=== PATIENT | female | born 1955 | race Caucasian/White ===

== ENCOUNTER 2024-06-27 08:16 | Inpatient (IN) | payer MEDICARE, SELFPAY ==
[2024-06-27] VITALS (38 sets, daily range): BP systolic 70–122; BP diastolic 47–73; PULSE 65–97; RESP 8–97; TEMP 36.4–36.8; O2SAT 87–100; BMI 24.7; BMI 25.0
--- NOTE | 2024-06-27 08:47 | EDNOTE_ITS ---
Altered Mental Status RME/HPI General Chief Complaint: Altered Mental Status Stated Complaint: altered level Time Seen by Provider: 06/27/24 08:46 Arrival date/time: 06/27/24 08:16 Limitations: no limitations RME / HPI RME / HPI narrative: * EMS Report: Patient was brought in [facility] (brought in by ambulance) for nausea and vomiting. * Patient's Report: The patient is unable to provide a clear time frame for the onset of symptoms and has no additional complaints. The patient denies having diarrhea. Additional Information: * No other significant symptoms or complaints noted at the time of arrival. Related Data Home Medications ?Medication ?Instructions ?Recorded ?Confirmed apixaban 5 mg tablet (Eliquis) 5 mg PO BID 09/19/23 01/08/24 lisinopril 2.5 mg tablet 2.5 mg PO QDAY 09/19/23 01/07/24 metoprolol tartrate 25 mg tablet 25 mg PO QDAY 09/19/23 01/07/24 acetaminophen 325 mg tablet 650 mg PO Q4HR PRN Pain (Scale 09/20/23 01/07/24 (Tylenol) Score 1-3) insulin glargine 100 unit/mL (3 40 unit subcut HS 09/20/23 01/07/24 mL) subcutaneous pen (Lantus Solostar U-100 Insulin) meclizine 25 mg tablet 25 mg PO BID PRN Nausea And 09/20/23 01/07/24 Vomiting ondansetron HCl 4 mg tablet 4 mg PO TID PRN Nausea 09/20/23 01/08/24 sitagliptin phosphate 100 mg 100 mg PO QDAY 09/20/23 01/07/24 tablet (Januvia) docusate sodium 250 mg capsule 250 mg PO BID 10/07/23 01/07/24 (DSS) folic acid 1 mg tablet 1 mg PO QDAY 10/07/23 01/07/24 insulin lispro 100 unit/mL See Rx Instructions .Route .COMPLEX 10/07/23 01/01/24 subcutaneous solution (Humalog U-100 Insulin) vortioxetine 10 mg tablet 10 mg PO QDAY 10/07/23 01/08/24 (Trintellix) alprazolam 0.25 mg tablet (Xanax) 0.25 mg PO BID PRN yelling out, 11/08/23 01/08/24 anxiety famotidine 20 mg tablet (Pepcid) 20 mg PO BID 11/08/23 01/08/24 pantoprazole 40 mg tablet,delayed 40 mg PO QDAY 11/08/23 01/08/24 release (Protonix) tramadol 50 mg tablet 50 mg PO Q6H PRN Pain, Moderate 11/08/23 01/08/24 methimazole 5 mg tablet 5 mg PO TID 01/01/24 01/07/24 pregabalin 50 mg capsule 50 mg PO BID 01/01/24 01/08/24 magnesium hydroxide 400 mg/5 mL 30 ml PO Q72H PRN Constipation 01/07/24 01/08/24 oral suspension (Milk of Magnesia) megestrol 400 mg/10 mL (40 mg/mL) 400 mg PO QDAY 01/07/24 01/07/24 oral suspension nitrofurantoin 100 mg PO BID 01/07/24 01/07/24 monohydrate/macrocrystals 100 mg capsule (Macrobid) Previous Rx's ?Medication ?Instructions ?Recorded fosfomycin tromethamine 3 gram 1 packet PO Q3D uti prophylaxis 6 01/03/24 oral packet months #1 ea ondansetron HCl 4 mg tablet 4 mg PO Q6H PRN nausea and 06/27/24 vomiting #7 tabs potassium chloride 20 mEq 20 meq PO QDAY #14 tabs 06/27/24 tablet,extended release(part/cryst) Allergies Allergy/AdvReac Type Severity Reaction Status Date / Time adhesive tape Allergy Rash Verified 11/15/23 11:10 Review of Systems Review of Systems Systems Reviewed: All systems reviewed, normal except as documented ED Exam General Limitations: Present no limitations General appearance: Present alert and in no apparent distress Head Head exam: Present atraumatic Eye Eye exam: Present normal appearance and PERRL ENT ENT exam: Present normal exam Chest Chest inspection: Present normal inspection Respiratory Respiratory exam: Present normal lung sounds bilaterally Cardiovascular Cardiovascular exam: Present regular rate and normal rhythm Abdominal Exam Abdominal exam: Present soft and normal bowel sounds Neurological Exam Neurological exam: Present alert and CN II-XII intact Psychiatric Psychiatric exam: Present depressed Course Quality Measures none Orders Category Date Time Status EKG (ED ONLY) *Do not use* NOW Care 06/27/24 09:20 Completed EKG (ED Only) Stat Exams 06/27/24 09:20 Draft XR chest 1V portable Stat Exams 06/27/24 09:20 Taken B-Type Natriuretic Peptide Stat Lab 06/27/24 09:38 Completed CBC Stat Lab 06/27/24 09:38 Completed Comprehensive Metabolic Panel Stat Lab 06/27/24 09:38 Completed Lipase Stat Lab 06/27/24 09:38 Completed Magnesium Stat Lab 06/27/24 09:38 Completed Prothrombin Time with INR Stat Lab 06/27/24 09:38 Completed Troponin I Stat Lab 06/27/24 09:38 Completed Ondansetron Odt [Zofran Odt] Med 06/27/24 09:20 Discontinued 4 mg PO X1 ONE Sodium Chloride 0.9% 1000 ml [Ns] 1,000 ml Med 06/27/24 11:03 Discontinued IV 999 mls/hr Vital Signs Vital signs: Vital Signs Temperature 98.0 F 06/27/24 08:22 Pulse Rate 78 06/27/24 08:22 Respiratory Rate 14 06/27/24 08:22 Blood Pressure 103/51 L 06/27/24 08:22 Pulse Oximetry (%) 90 L 06/27/24 08:22 Oxygen Delivery Method Room Air 06/27/24 08:22 Altered Mental Status MDM Narrative MDM Narrative:: Patient was found to be hypotensive. After a liter of normal saline her vitals were stabilized. Her EKG is nonischemic. Labs are at her baseline. Patient is stable for transfer back to [facility] facility Patient data External records reviewed:: [facility] previous records and EMS form Clinical information provided by:: patient and EMS Social determinants that could affect healthcare access:: none Patient has the following chronic illnesses:: Unknown How is presenting disease/condition affected by chronic disease/condition?: caused by Evaluation data The following diagnostics were reviewed and interpreted by me:: lab results and EKG tracing(s) Lab and/or radiology exams considered but not ordered:: NA Interpretation Summary: See MDM Medications / Prescriptions Medications or Prescriptions considered but not ordered:: Not applicable Medication administrations:: Medication Administration History Discontinued Medications Sodium Chloride (Ns) 1,000 mls @ 999 mls/hr IV .Q1H1M ONE Stop: 06/27/24 12:03 Last Infusion: 06/27/24 11:57 Dose: Infused Documented By: Admin: 06/27/24 11:06 Dose: 999 mls/hr Documented By: SHORTY Ondansetron HCl (Ondansetron Odt 4 Mg Tabrap) 4 mg PO X1 ONE; Protocol Stop: 06/27/24 09:21 Last Admin: 06/27/24 10:03 Dose: 4 mg Documented By: NELLI As above Consultations Consultation(s) initiated? (list below): No Diagnosis Differential diagnosis altered mental status: altered mental status and hyponatremia Most likely diagnosis given after review of the tests above:: Nausea and vomiting secondary to gastroenteritis Admission Indicated Admission indicated?: not indicated Admission Request Was there a request for admission?: No Disposition Plan Disposition Plan: Discharge Discharge Attestation Discharge Attestation: The patient and all family members were given an opportunity to ask questions and understood the discharge instructions. Discharge instructions specifically effects, indications for sooner follow up or return to the emergency department, and the expected course of current diagnosis. Patient condition: Stable Discharge Plan Plan Patient Disposition: [facility] Patient condition on transfer: Stable Prescriptions/Referrals Prescriptions/Med Rec: New ondansetron HCl 4 mg tablet 4 mg PO Q6H PRN (Reason: nausea and vomiting) Qty: 7 0RF potassium chloride 20 mEq tablet,ER particles/crystals 20 meq PO QDAY Qty: 14 0RF No Action lisinopril 2.5 mg tablet 2.5 mg PO QDAY Patient Comments: TAKE 1 TABLET BY MOUTH EVERY DAY FOR 30 DAYS Rx Instructions: hold SBP<100 DBP<60 HR <60 metoprolol tartrate 25 mg tablet 25 mg PO QDAY Patient Comments: TAKE 1 TABLET BY MOUTH TWICE A DAY WITH FOOD FOR 30 DAYS Rx Instructions: hold SBP<100, DBP<60 or HR <60 Eliquis 5 mg tablet 5 mg PO BID Patient Comments: TAKE 1 TABLET BY MOUTH TWICE A DAY FOR ATRIAL FIBRILLATION acetaminophen [Tylenol] 325 mg Tablet 650 mg PO Q4HR PRN (Reason: Pain (Scale Score 1-3)) Rx Instructions: NOT TO EXCEED 3GM IN 24HRS ondansetron HCl 4 mg Tablet 4 mg PO TID PRN (Reason: Nausea) meclizine 25 mg Tablet 25 mg PO BID PRN (Reason: Nausea And Vomiting) Hold Instructions: Resume on 09/21/23. Rx Instructions: NEEDED FOR N/V AND DIZZINESS Januvia 100 mg tablet 100 mg PO QDAY Patient Comments: TAKE 1 TABLET BY MOUTH EVERY DAY FOR 30 DAYS insulin glargine [Lantus Solostar U-100 Insulin] 100 unit/mL (3 mL) Insulin Pen 40 unit SUBCUT HS Hold Instructions: Resume on 11/17/23. Patient's blood sugars have been stable without any long acting insulin. Please continue to monitor sugars and resume lantus at a lower dose, if she needs it. tramadol 50 mg Tablet 50 mg PO Q6H PRN (Reason: Pain, Moderate) alprazolam [Xanax] 0.25 mg Tablet 0.25 mg PO BID PRN (Reason: yelling out, anxiety) famotidine [Pepcid] 20 mg Tablet 20 mg PO BID pantoprazole [Protonix] 40 mg Tablet,Delayed Release (Dr/Ec) 40 mg PO QDAY pregabalin 50 mg Capsule 50 mg PO BID methimazole 5 mg tablet 5 mg PO TID fosfomycin tromethamine 3 gram packet 1 packet PO Q3D 180 Days Qty: 1 12RF Rx Instructions: Start fosfomycin 3 g packet once every 3 days indefinitely for UTI prophylaxis starting from 01/08/2024 folic acid 1 mg Tablet 1 mg PO QDAY insulin lispro [Humalog U-100 Insulin] 100 unit/mL Solution See Rx Instructions .ROUTE .COMPLEX Protocol: Insulin Corrective High-Dose Regimen Condition: Fingerstick Blood Glucose Dose/Route: Insulin Units Condition: 141-180 mg/dl Dose/Route: 6 units/SQ Condition: 181-220 mg/dl Dose/Route: 8 units/SQ Condition: 221-260 mg/dl Dose/Route: 10 units/SQ Condition: 261-300 mg/dl Dose/Route: 12 units/SQ Condition: 301-350 mg/dl Dose/Route: 14 units/SQ Condition: 351-400 mg/dl Dose/Route: 16 units/SQ Condition: greater than 400 mg/dl Dose/Route: 18 units/SQ Rx Instructions: sliding scale Trintellix 10 mg Tablet 10 mg PO QDAY docusate sodium [DSS] 250 mg Capsule 250 mg PO BID nitrofurantoin monohyd/m-cryst [Macrobid] 100 mg Capsule 100 mg PO BID Rx Instructions: FOR 7 DAYS. STARTED 01/04/24 megestrol 400 mg/10 mL (40 mg/mL) Suspension 400 mg PO QDAY Rx Instructions: FOR 30 DAYS, ENDING 02/06/24 magnesium hydroxide [Milk of Magnesia] 400 mg/5 mL Suspension 30 ml PO Q72H PRN (Reason: Constipation) Rx Instructions: IF NO BM FOR 3 DAYS Referrals: Jamarcus Botello MD [Primary Care Provider] - In 1 week Problem List Clinical Impression: Nausea & vomiting, Hypotension, Hypokalemia Patient/Caregiver Discharge Instructions Print Language: Slovenian Stand Alone Forms: Claudia Award Info., Patient Portal Info Letter
--- NOTE | 2024-06-27 08:48 | PC.NURSE ---
Patient AMADOU from [facility] for altered mental status with GCS 14 which staff states is not normal. Patient is alert and answers all questions appropriately. Patient states that she is over at facility because she was falling down a lot and has been awhile since she has been able to ambulte due to her weakness. Patient has Hx of CHF, AHD, A-fib, HTN, GERD, DM2, and hyperthyroidism with allergy to adhesive tape. Will continue to monitor and awaiting further orders.
--- NOTE | 2024-06-27 09:20 | EKG_ITS ---
[facility] Test Date: 2024-06-27 Pat Name: WILI TRIANA Department: Room: - Gender: Female Shipping And Receiving Supervisor: : [id number] Requested By: Daniel Che Order Number: [id number] Reading MD: Daniel Che Measurements Intervals [place] Rate: 73 P: -17 KS: 162 QRS: -17 QRSD: 98 T: 53 QT: 451 QTc: 500 Interpretive Statements SINUS RHYTHM LOW QRS VOLTAGE IN EXTREMITY LEADS [QRS DEFLECTION < 0.5 mV IN LIMB LEADS] PROLONGED QT INTERVAL Compared to ECG 01/07/2024 11:56:11 Prolonged QT interval now present Myocardial infarct finding no longer present /store/S0/[id number]/[id number].pdf
--- NOTE | 2024-06-27 09:20 | XR_ITS ---
Examination: AP chest single view Technique: AP portable upright chest single view Indications: Chest pain loss of consciousness today. Findings: Mild prominence left ventricle Moderate vascular congestion Subsegmental atelectasis left base with possible early pneumonia Moderate osteopenia Impression: Subsegmental atelectasis left base with possible early left base pneumonia, clinical correlation advised
[2024-06-27 09:56] LABS: INR 1.1 (0.9-1.3); Prothrombin Time 12.4 Seconds (9.0-12.2)
[2024-06-27 09:57] LABS: Basophils # (Auto) 0.1 Thou/mm3 (0.0-0.2); Basophils % (Auto) 1 % (0-2.5); Eosinophils # (Auto) 0.2 Thou/mm3 (0.0-0.5); Eosinophils % (Auto) 1 % (0-10); Hematocrit 42.8 % (36.0-46.0); Hemoglobin 13.4 g/dL (12.0-16.0); Immature Granulocytes % (Auto) 0 % (0-0); Immature Granulocytes Auto 0.08 Thou/mm3 (0.00-0.00); Lymphocytes # (Auto) 3.4 Thou/mm3 (1.0-4.8); Lymphocytes % (Auto) 17 % (10-50); Mean Corpuscular HGB Conc 31.3 g/dl (31.0-37.0); Mean Corpuscular Hemoglobin 30.5 pg (25.0-35.0); Mean Corpuscular Volume 97 fL (80-100); Monocytes # (Auto) 2.1 Thou/mm3 (0.0-0.8); Monocytes % (Auto) 11 % (0-12); Neutrophils % (Auto) 71 % (37-80); Nucleated Red Blood Cell % 0 /100 WBC (0); Platelet Count 235 Thou/mm3 (140-440); RDW Standard Deviation 47.5 fL (36.4-46.3); White Blood Count 19.8 Thou/mm3 (3.6-11.0)
[2024-06-27] MEDS: ONDANSETRON ODT 4 MG TABRAP PO (10:03)
[2024-06-27 10:16] LABS: Alanine Aminotransferase 21 U/L (10-49); Albumin, Serum 3.7 gm/dL (3.4-4.8); Albumin/Globulin Ratio 1.2 (1.2-2.2); Alkaline Phosphatase 129 U/L (46-116); Anion Gap 14 (7-16); Aspartate Amino Transferase 21 U/L (0-34); BUN/Creatinine Ratio 26 Ratio (12-20); Bilirubin,Total 0.6 mg/dL (0.3-1.2); Blood Urea Nitrogen 74 mg/dL (9-23); Calcium 9.5 mg/dL (8.3-10.6); Calcium (Corrected) 9.7 mg/dL (8.5-10.1); Carbon Dioxide > 40.0 mMol/L (20.0-31.0); Chloride 87 mMol/L (98-107); Creatinine (Component) 2.8 mg/dL (0.6-1.3); Glucose 122 mg/dL (74-106); Lipase 50 U/L (12-53); Magnesium 2.7 mg/dL (1.6-2.6); Osmolality,Calculated 304 (275-295); Potassium 2.9 mMol/L (3.4-5.1); Sodium 141 mMol/L (136-145); Total Protein 6.7 gm/dL (5.7-8.2); Troponin I < 0.020 ng/mL (0.0-0.045); eGFR 18 See Note
[2024-06-27 10:37] LABS: B-Type Natriuretic Peptide 25 pg/mL (0-100)
[2024-06-27] MEDS: SODIUM CHLORIDE 0.9% 1000 ML 1,000 ML 999 ML IV ×2 (11:06→12:40)
--- NOTE | 2024-06-27 12:25 | PC.CC ---
RL was consulted by Dr. Nur for arrangement of transportation for the patient to return to [facility]. KARINAW made contact with [facility] and informed them the patient is being discharged they reported they would be picking up the patient at approx. 1400.
--- NOTE | 2024-06-27 12:29 | PC.NURSE ---
Gave update on patients status to Lina germain at [facility]. Jozef primary nurse made aware.
--- NOTE | 2024-06-27 12:48 | PC.CC ---
ASW was consulted by PAYAM Whelan who reports patient's discharge is being pushed out as a medication is being administered. ASW made contact with [facility] who reports they can last picker the patient at 1830. ASW made strategic communications manager Sara aware and reported this is fine. ASW to remain available as needed.
[2024-06-27 12:55] LABS: Collection Type, Urine Catheter
[2024-06-27 13:11] LABS: Bacteria,Urine 4+; Bilirubin,Urine Negative (Negative); Blood,Urine 1+ (Negative); Glucose, Urine Negative (Negative); Ketones,Urine Negative (Negative); Leukocyte Esterase,Urine Positive (Negative); Nitrite,Urine Negative (Negative); Protein,Urine 1+ (Neg - Trace); RBC,Urine 8 /hpf (0-3); Specific Gravity,Urine 1.011 (1.001-1.035); Squamous Epithelial Cell,Urine 1 /hpf (0-5); Urobilinogen,Urine Negative mg/dL (0.0-1.0); WBC,Urine 409 /hpf (0-5)
[2024-06-27 13:12] LABS: Clarity,Urine Hazy (Clear/Hazy); Color,Urine Lt-Yellow (Lt Yel-Yel); Culture Indicated,Urine Yes
--- NOTE | 2024-06-27 13:43 | PC.CC ---
ASW was provided with updated information by osteopathic neurologist Sara that patient is being admitted. ASW made contact with [facility] to cancel transportation.
--- NOTE | 2024-06-27 14:37 | PC.CC ---
Nuzhat SHINE made face to face contact with the patient to complete initial assessment. The patient is not alert and oriented. ASW attempted to make contact with family on demographics via telephone with no success. Patient is from [facility].
[2024-06-27] MEDS: POTASSIUM CHLORIDE 20 mEq TABCR 40 MEQ PO (15:13)
[2024-06-27] MEDS: cefTRIAXone/D5w 1gm IV premix 50 ML IV (15:13)
[2024-06-27 15:17] LABS: Lactate (Lactic Acid) 0.8 mMol/L (0.4-2.0)
[2024-06-27] MEDS: SODIUM CHLORIDE 0.9% 1000 ML 1,000 ML 75 ML IV (15:18)
[2024-06-27] MEDS: SODIUM CHLORIDE 0.9% 500 ML 500 ML 999 ML IV (15:35)
--- NOTE | 2024-06-27 15:40 | ESHP_ITS ---
Documentation for date of: 06/27/24 [facility] History of Present Illness Chief complaint: vomiting History of present illness: Federico Simms is 69 yr female with PMH of insulin-dependent type 2 diabetes, A-fib no longer on Eliquis, hypothyroidism, HFpEF, anxiety, GERD, recurrent UTI, bedbound, akinetic parkinsonism, hyperlipidemia who presented to ED today due to fatigue, weakness, multiple episodes of vomiting since past 3 days. Patient has no fever, chills, diarrhea, chest pain, shortness of breath, or abdominal pain. Denies any change in diet. States that vomiting occurs with liquids as well. No hematemesis. Patient usually uses oxygen in the senior living as needed but cannot recall how much. Previous admission in December 2023 showed a UTI positive for ESBL Klebsiella pneumoniae. Currently denies any dysuria or difficulty with urination. At this time, patient is lethargic and not able to provide history at length. In the ED, vitals significant for hypertension 70/40, pulse 78, oxygen saturation 96% on 3 L nasal cannula, afebrile. CBC reveals leukocytosis WBC 20, CMP showed hypokalemia 2.9, sodium 141, elevated creatinine 2.8, glucose 122, lactic acid 0.8, hyper mag 2.7. Urinalysis positive for UTI with leukocyte esterase, WBC 409, 4+ bacteria. Diagnostic imaging:Chest x-ray shows moderate vascular congestion, possible early left base pneumonia. While in the ED patient received 2 L bolus normal saline which improved blood pressure to 90s/60s. Repleted potassium 40+20, x1 dose ceftriaxone, 4 mg Zofran. Blood pressure dropped again sometime after the 2 L bolus 82/53 with MAP 56. Additional 500 cc bolus given with response to 115/67 and MAP 73. Patient admitted for management of sepsis secondary to UTI, JATIN, intractable nausea vomiting. PMH: as noted above (based on chart review) PSH: unknown FamHx: unknown Social: no smoking, no drinking. Review of Systems Review of Systems Systems Reviewed: All systems reviewed, normal except as documented Exam Vital Signs Temp Pulse Resp BP Pulse Ox O2 Del Method O2 Flow Rate 98.0 F 67 12 85/51 L 96 Nasal Cannula 3 06/27/24 15:00 06/27/24 15:00 06/27/24 15:00 06/27/24 15:00 06/27/24 15:00 06/27/24 15:00 06/27/24 15:00 Narrative Exam General: Alert and oriented x3. No acute distress, cooperative, lethargic Eyes: Pupils are equal and reactive to light bilaterally HEENT: Atraumatic, normocephalic. No JVD noted. Mucosa dry. Cardiovascular: Normal S1 and S2. Regular rate and rhythm. No pitting edema Respiratory: Lungs are clear to auscultation bilaterally. No wheezing or crackles heard. Abdomen: Soft, nontender, not distended, normal bowel sounds. Skin: Warm to touch, dry, no rashes noted Musculoskeletal: No gross injuries. Able to move all 4 extremities. Neuro: Alert and oriented x3. No focal neuro deficits. Psych: Normal affect and mood Results: Labs 06/27/24 09:38 06/27/24 09:38 Labs: Short CBC 06/27/24 Range/Units 09:38 WBC 19.8 H (3.6-11.0) Thou/mm3 Hgb 13.4 (12.0-16.0) g/dL Hct 42.8 (36.0-46.0) % Plt Count 235 (140-440) Thou/mm3 BMP 06/27/24 09:38 Sodium 141 Potassium 2.9 L Chloride 87 L Carbon Dioxide > 40.0 H BUN 74 H Creatinine 2.8 H Glucose 122 H Calcium 9.5 Cardiac Enzymes 06/27/24 Range/Units 09:38 Troponin I < 0.020 (0.0-0.045) ng/mL Liver Function 06/27/24 Range/Units 09:38 Total Bilirubin 0.6 (0.3-1.2) mg/dL AST 21 (0-34) U/L ALT 21 (10-49) U/L Alkaline Phosphatase 129 H (46-116) U/L Albumin 3.7 (3.4-4.8) gm/dL Urine 06/27/24 Range/Units 12:50 Urine Color Lt-Yellow (Lt Yel-Yel) Urine Clarity Hazy (Clear/Hazy) Urine pH 7.0 (5.0-7.0) Ur Specific [place] 1.011 (1.001-1.035) Urine Protein 1+ A (Neg - Trace) Urine Glucose (UA) Negative (Negative) Quality Measures Quality Measures none Advance care planning discussed with:: patient Medications Home Medications and Allergies Home Medications ?Medication ?Instructions ?Recorded ?Confirmed ?Type apixaban 5 mg tablet (Eliquis) 5 mg PO BID 09/19/23 01/08/24 History lisinopril 2.5 mg tablet 2.5 mg PO QDAY 09/19/23 01/07/24 History metoprolol tartrate 25 mg tablet 25 mg PO QDAY 09/19/23 01/07/24 History acetaminophen 325 mg tablet 650 mg PO Q4HR PRN Pain (Scale 09/20/23 01/07/24 History (Tylenol) Score 1-3) insulin glargine 100 unit/mL (3 40 unit subcut HS 09/20/23 01/07/24 History mL) subcutaneous pen (Lantus Solostar U-100 Insulin) meclizine 25 mg tablet 25 mg PO BID PRN Nausea And 09/20/23 01/07/24 History Vomiting ondansetron HCl 4 mg tablet 4 mg PO TID PRN Nausea 09/20/23 01/08/24 History sitagliptin phosphate 100 mg 100 mg PO QDAY 09/20/23 01/07/24 History tablet (Januvia) docusate sodium 250 mg capsule 250 mg PO BID 10/07/23 01/07/24 History (DSS) folic acid 1 mg tablet 1 mg PO QDAY 10/07/23 01/07/24 History insulin lispro 100 unit/mL See Rx Instructions .Route .COMPLEX 10/07/23 01/01/24 History subcutaneous solution (Humalog U-100 Insulin) vortioxetine 10 mg tablet 10 mg PO QDAY 10/07/23 01/08/24 History (Trintellix) alprazolam 0.25 mg tablet (Xanax) 0.25 mg PO BID PRN yelling out, 11/08/23 01/08/24 History anxiety famotidine 20 mg tablet (Pepcid) 20 mg PO BID 11/08/23 01/08/24 History pantoprazole 40 mg tablet,delayed 40 mg PO QDAY 11/08/23 01/08/24 History release (Protonix) tramadol 50 mg tablet 50 mg PO Q6H PRN Pain, Moderate 11/08/23 01/08/24 History methimazole 5 mg tablet 5 mg PO TID 01/01/24 01/07/24 History pregabalin 50 mg capsule 50 mg PO BID 01/01/24 01/08/24 History magnesium hydroxide 400 mg/5 mL 30 ml PO Q72H PRN Constipation 01/07/24 01/08/24 History oral suspension (Milk of Magnesia) megestrol 400 mg/10 mL (40 mg/mL) 400 mg PO QDAY 01/07/24 01/07/24 History oral suspension nitrofurantoin 100 mg PO BID 01/07/24 01/07/24 History monohydrate/macrocrystals 100 mg capsule (Macrobid) Allergies Allergy/AdvReac Type Severity Reaction Status Date / Time adhesive tape Allergy Rash Verified 11/15/23 11:10 Visit Medications Acetaminophen (Acetaminophen 325 Mg Tablet) 650 mg PO Q6H PRN PRN Reason: Fever >100.3 or pain Stop: 07/27/24 14:52 Heparin Sodium (Porcine) (Heparin Sod Inj 5000 Unit/Ml Vial) 5,000 unit SC Q12HR KODI Stop: 07/11/24 20:59 Meropenem 500 mg/ Sodium (Chloride) 50 mls @ 100 mls/hr IV Q12HR KODI; Protocol Stop: 07/04/24 20:59 Sodium Chloride (Ns) 1,000 mls @ 75 mls/hr IV .[id number] KODI Stop: 06/28/24 04:31 Last Admin: 06/27/24 15:18 Dose: 75 mls/hr Sodium Chloride (Ns) 500 mls @ 999 mls/hr IV .Q31M KODI Stop: 06/27/24 16:04 Ondansetron HCl (Ondansetron Inj 2 Mg/Ml Inj 2 Ml) 4 mg IV Q6H PRN; Protocol PRN Reason: NAUSEA OR VOMITING Stop: 07/27/24 14:52 Discontinued Medications Sodium Chloride (Ns) 1,000 mls @ 999 mls/hr IV .Q1H1M ONE Stop: 06/27/24 12:03 Last Infusion: 06/27/24 11:57 Dose: Infused Sodium Chloride (Ns) 1,000 mls @ 999 mls/hr IV .Q1H1M ONE Stop: 06/27/24 13:37 Last Admin: 06/27/24 12:40 Dose: 999 mls/hr Ceftriaxone Sodium/Dextrose (Rocephin/D5w 1gm Iv Premix) 50 mls @ 100 mls/hr IV X1 ONE Stop: 06/27/24 13:46 Last Admin: 06/27/24 15:13 Dose: 100 mls/hr Ondansetron HCl (Ondansetron Odt 4 Mg Tabrap) 4 mg PO X1 ONE; Protocol Stop: 06/27/24 09:21 Last Admin: 06/27/24 10:03 Dose: 4 mg Potassium Chloride (Potassium Chloride 20 Meq Tabcr) 40 meq PO X1 ONE Stop: 06/27/24 13:50 Last Admin: 06/27/24 15:13 Dose: 40 meq Potassium Chloride (Potassium Chloride 20 Meq Tabcr) 20 meq PO X1 ONE Stop: 06/27/24 13:50 Assessment & Plan Plan Federico Simms is 69 yr female with PMH of insulin-dependent type 2 diabetes, A-fib no longer on Eliquis, hypothyroidism, HFpEF, anxiety, GERD, recurrent UTI, bedbound, akinetic parkinsonism, hyperlipidemia who presented to ED today due to fatigue, weakness, multiple episodes of vomiting since past 3 days. Patient has no fever, chills, diarrhea, chest pain, shortness of breath, or abdominal pain. Patient usually uses oxygen in the senior living as needed but cannot recall how much. Previous admission in December 2023 showed a UTI positive for ESBL Klebsiella pneumoniae. Currently denies any dysuria or difficulty with urination. Patient admitted for management of sepsis secondary to UTI, JATIN, intractable nausea vomiting. #Sepsis 2/2 UTI On physical exam patient appears to be very ill looking, slow to respond, lethargic. Urinalysis positive for UTI with leukocyte esterase, WBC 409, 4+ bacteria. Does not meet SIRS 2/4 however WBC is elevated 20 and patient is hypotensive with short time adequate response to bolus fluid. Response is fluctuating with drop in blood pressure after some time post bolus. Signs of acute organ dysfunction including the hypotension and JATIN. Lactic acid not elevated 0.8. Previous admission urine culture positive for ESBL Klebsiella pneumonia. S/p 2.5 L bolus in ED,x1 dose ceftriaxone, 4 mg Zofran. -Continue monitoring vitals and possible additional 500 cc bolus NS ? Due to previous ESBL start patient on meropenem (renally dosed) ? Considering upgrade to ICU for pressors if patient does not remain stable after additional 500 cc bolus ?Urine culture pending ? Blood culture pending #JATIN most likely prerenal BUN/creatinine ratio greater than 20 indicating prerenal etiology. Underlying cause may be due to poor oral intake versus hypoperfusion in setting of sepsis. Baseline creatinine 0.9. Creatinine at admission 2.8. ?Continue to monitor renal function and response to bolus fluids ? Will consider nephrology consult tomorrow if there is no improvement of creatinine ?nelly u/s tomorrow ?Urine electrolytes pending ?Avoid nephrotoxic agents #Intractable nausea/vomiting Ddx: Viral vs medication side effect vs UTI vs ileus Multiple episodes since past 3 days. No diarrhea. -Zofran 4 mg as needed ? Start maintenance fluids if bolus fluids are able to maintain blood pressure adequately #Insulin-dependent type 2 diabetes, adequately controlled On admission initial glucose 122. Last A1c 5.4 on December 2023. Patient takes 40 units glargine, Januvia for diabetes at home. 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 Currently RRR, EKG no acute changes, sinus rhythm. #History akinetic parkinsonism -Med rec still pending #History anxiety/depression -Med rec pending #History GERD -Pantoprazole 40 mg daily #History of hypertension At home patient takes lisinopril 2.5 mg p.o. daily and metoprolol tartrate 25 mg p.o. daily ? Med rec pending Health maintenance: Dispo: med surg, sepsis 2/2 UTI DVT prophylaxis: Subcu heparin CODE STATUS: Full code Diet: low carb The patient's management plan was discussed with my attending physician Dr. Adkins and senior Dr. Tompkins. Kitty Cortes, PGY-1 Attending Provider Attestation/Addendum In short, the patient is a 69-year-old female with significant past medical history of hypothyroidism, HFpEF, GERD, frequent urinary tract infections, akinetic parkinsonian omentum, hypertension, type 2 diabetes, anxiety and history of atrial fibrillation no longer on AC, presented to the ED for generalized weakness, nausea and vomiting for the past 3 days and fatigue. No hematemesis or abdominal pain was endorsed. The patient is not tender to palpation at time of bedside visit apparently the patient is on home O2 however unknown quantity at this time. Also of note, patient's had multiple UTIs in the past, urine cultures on 01/01/2024 demonstrating ESBL Klebsiella. In the ED, patient was initially hypotensive, 2 L fluid bolus given and the patient's MAP did increase however began to drop again hence an additional 500 mL bolus was given. With good response. Patient afebrile on arrival, initial O2 sat 90% on room air, significant labs include a WBC of 19.8, neutrophil predominant, potassium 2.9, bicarb greater than 40, chloride 87, BUN 74, creatinine 2.8, baseline appears to be 0.8, last recorded in December 2023, normal glucose, osmolality 304, magnesium 2.7 negative troponin, BNP 25, UA positive demonstrating 409 WBCs and 4+ bacteria. A chest x-ray performed in the ED demonstrated subsegmental atelectasis at the left base with possible early left base pneumonia EKG demonstrated NSR. Lactate was drawn but after fluids given when we initially assessed the patient and was less than 2. ASSESSMENT: #Sepsis secondary to urinary tract infection versus viral/bacterial gastroenteritis. With associated JATIN and hypotension #Urinary tract infection likely with gram-negative organisms #Encephalopathy, toxic versus metabolic, unclear of the chronicity of her encephalopathy will have to assess further 1. Sepsis bolus given 2.5 L in ED, will continue to monitor if patient's MAP drops below 65, will consider transfer to ICU for pressor support 2. Will start meropenem for more recent history of ESBL Klebsiella urinary tract infection, will de-escalate pending urine cultures 3 blood and urine cultures are pending, will follow 4. Urine electrolytes ordered, may consider nephrology consult if patient's JATIN continues to worsen #Acute kidney injury, creatinine 2.8 on arrival, baseline December 2023 was 0.8. Likely prerenal from fluid losses #Uremia, BUN 74 on admission 1. Will continue fluids, urine electrolytes ordered, will consider nephrology consult if further decline is noted #Hypokalemia #Metabolic derangements 1. CTM and replete electrolytes as needed #Metabolic alkalosis, possibly secondary to vomiting #Nausea and vomiting, possibly secondary to viral versus bacterial gastroenteritis versus metabolic derangements 1. Fluids given, may consider CTAP if the patient does not improve Chronic Conditions: #IDDM #Hypothyroidism #HFpEF #GERD #Akinetic parkinsonian is him #Hypertension #Anxiety #Atrial fibrillation, previously on Eliquis in the past however not on anticoagulation now 1. Will restart home medications as appropriate Antimicrobials: Meropenem start 06/27 DISPO: Discharge likely in 1 to 2 days back to SNF pending clinical course
[2024-06-27] MEDS: POTASSIUM CHLORIDE 20 mEq TABCR PO (15:58)
[2024-06-27] MEDS: INSULIN GLARGINE (Lantus) 5 UNIT/0.05 ML (PER 5 UNITS) 10 UNIT SC (21:12)
[2024-06-27] MEDS: HEPARIN SOD INJ 5000 UNIT/ML VIAL SC (21:12)
[2024-06-27] MEDS: MEROPENEM INJ 500 MG in SODIUM CHLORIDE 0.9% (P) 50 ML 100 MG IV (21:13)
--- NOTE | 2024-06-27 22:40 | PC.NURSE ---
REPORT CALLED TO PAYAM GARNICA. ALL QUESTIONS ASKED AND ANSWERED. PATIENT TRANSFERRED TO FLOOR WITH STAFF. NO DISTRESS NOTED AT TRANSFER.
[2024-06-27 23:16] LABS: Calcium, Random Urine < 5 mg/dL (2-18); Chloride,Urine Random 23.8 mMol/L (55.0-125.0); Creatinine,Random Urine 74 mg/dL (30-125); Potassium,Urine Random 47 mMol/L (12-62); Sodium,Urine Random 64.9 mMol/L (20.0-110.0)
[2024-06-28] VITALS (8 sets, daily range): BP systolic 104–123; BP diastolic 63–73; PULSE 75–91; RESP 15–18; TEMP 36.2–36.6; O2SAT 91–96; BMI 25.1
[2024-06-28 05:59] LABS: Basophils # (Auto) 0.1 Thou/mm3 (0.0-0.2); Basophils % (Auto) 1 % (0-2.5); Eosinophils # (Auto) 0.4 Thou/mm3 (0.0-0.5); Eosinophils % (Auto) 3 % (0-10); Hematocrit 42.2 % (36.0-46.0); Hemoglobin 13.2 g/dL (12.0-16.0); Immature Granulocytes % (Auto) 0 % (0-0); Immature Granulocytes Auto 0.04 Thou/mm3 (0.00-0.00); Lymphocytes # (Auto) 2.5 Thou/mm3 (1.0-4.8); Lymphocytes % (Auto) 20 % (10-50); Mean Corpuscular HGB Conc 31.3 g/dl (31.0-37.0); Mean Corpuscular Hemoglobin 30.8 pg (25.0-35.0); Mean Corpuscular Volume 98 fL (80-100); Monocytes # (Auto) 1.3 Thou/mm3 (0.0-0.8); Monocytes % (Auto) 10 % (0-12); Neutrophils # (Auto) 8.4 Thou/mm3 (1.8-7.7); Neutrophils % (Auto) 67 % (37-80); Nucleated Red Blood Cell % 0 /100 WBC (0); Platelet Count 209 Thou/mm3 (140-440); RDW Standard Deviation 46.5 fL (36.4-46.3); Red Blood Count 4.29 Miln/mm3 (4.00-5.20); White Blood Count 12.6 Thou/mm3 (3.6-11.0)
[2024-06-28 06:34] LABS: Alanine Aminotransferase 26 U/L (10-49); Albumin, Serum 3.7 gm/dL (3.4-4.8); Albumin/Globulin Ratio 1.3 (1.2-2.2); Alkaline Phosphatase 120 U/L (46-116); Anion Gap 6 (7-16); Aspartate Amino Transferase 27 U/L (0-34); BUN/Creatinine Ratio 27 Ratio (12-20); Bilirubin,Total 0.5 mg/dL (0.3-1.2); Blood Urea Nitrogen 59 mg/dL (9-23); Calcium 8.8 mg/dL (8.3-10.6); Carbon Dioxide 39.7 mMol/L (20.0-31.0); Chloride 95 mMol/L (98-107); Creatinine (Component) 2.2 mg/dL (0.6-1.3); Estimated Creatinine Clearance 24.1 mL/min (>60); Globulin 2.9 gm/dL (2.3-3.5); Glucose 79 mg/dL (74-106); Magnesium 2.5 mg/dL (1.6-2.6); Osmolality,Calculated 296 (275-295); Phosphorous 3.8 mg/dL (2.4-5.1); Potassium 3.4 mMol/L (3.4-5.1); Sodium 141 mMol/L (136-145); Total Protein 6.6 gm/dL (5.7-8.2); eGFR 24 See Note
[2024-06-28 06:50] LABS: Glucose Estimated Average 117 mg/dL (80-131); Hemoglobin A1C 5.7 % Hgb (4.8-6.0)
--- NOTE | 2024-06-28 09:27 | PC.SS ---
Patient is a [facility] resident of [facility]. SS spoke to Aracelis, daughter in law for patient. She confirms patient will return to facility when medically stable. Point of contact and alt medical decision maker will be herself and her . Patient admitted for sepsis. She does not have [facility]. She pays privately. At the time of discharge they will contact admissions and make payment. Patient will need gurney transport due to her being bed bound. PCP: Dr. Botello. transportation: gurney alt medical decision maker: Son and daughter in law d/c plan: [facility] return
[2024-06-28] MEDS: POTASSIUM CHLORIDE 20 mEq TABCR 40 MEQ PO (09:35)
[2024-06-28] MEDS: MEROPENEM INJ 500 MG in SODIUM CHLORIDE 0.9% (P) 50 ML 100 MG IV ×2 (09:35→20:19)
[2024-06-28] MEDS: HEPARIN SOD INJ 5000 UNIT/ML VIAL SC (09:36)
[2024-06-28] MEDS: INSULIN LISPRO (AdmeLOG) 1 UNIT/0.01 ML UNIT SC ×2 (12:15→17:07)
[2024-06-28] MEDS: VORTIOXETINE 5 MG TABLET (NON FORMULARY) 10 MG PO (12:15)
--- NOTE | 2024-06-28 13:27 | ESPR_ITS ---
Documentation for date of: 06/28/24 Subjective Subjective Interval history: Patient was seen and examined at bedside. No acute events overnight. Patient was able to have breakfast meal this morning without any episodes of recurrent vomiting. Today she appears to be less somnolent however still slow to respond. Denies any abdominal pain, diarrhea, dysuria. Patient is bedbound and currently has pure wick catheter. Vitals significant for blood pressure 114/73 and stable after receiving 2.5 L bolus normal saline yesterday. Currently oxygenating at 94% via 2 L nasal cannula and no shortness of breath. Still unsure at this time how much oxygen patient uses outside of hospital and nursing facility. Labs significant for downtrending WBC 12.6, potassium 3.4 repleted with 40 mill equivalent, creatinine downtrending to 2.2. UTI resulted gram-negative rods--continue with meropenem at this time due to history of ESBL in the past. Will de-escalate once speciation has resulted. Blood culture still pending. Review of systems otherwise negative except what is mentioned above. Exam Vital Signs Temp Pulse Resp BP Pulse Ox O2 Del Method O2 Flow Rate 97.8 F 87 18 116/67 93 L Nasal Cannula 2 06/28/24 12:00 06/28/24 12:00 06/28/24 12:00 06/28/24 12:00 06/28/24 12:00 06/28/24 12:00 06/28/24 12:00 Narrative Exam General: Alert and oriented x3. No acute distress, cooperative, lethargic Eyes: Pupils are equal and reactive to light bilaterally HEENT: Atraumatic, normocephalic. No JVD noted. Mucosa dry. Cardiovascular: Normal S1 and S2. Regular rate and rhythm. No pitting edema Respiratory: Lungs are clear to auscultation bilaterally. No wheezing or crackles heard. Abdomen: Soft, nontender, not distended, normal bowel sounds. Skin: Warm to touch, dry, no rashes noted Musculoskeletal: No gross injuries. Able to move all 4 extremities. Neuro: Alert and oriented x3. No focal neuro deficits. Psych: Normal affect and mood Objective Labs 06/28/24 05:32 06/28/24 05:32 Labs: Laboratory Results - last 24 hr 06/27/24 06/27/24 06/28/24 12:50 15:09 05:32 WBC 12.6 H D RBC 4.29 Hgb 13.2 Hct 42.2 MCV 98 MCH 30.8 MCHC 31.3 RDW Std Deviation 46.5 H Plt Count 209 Neut % (Auto) 67 Lymph % (Auto) 20 [place] % (Auto) 10 Eos % (Auto) 3 Baso % (Auto) 1 Neut # (Auto) 8.4 H Lymph # (Auto) 2.5 [place] # (Auto) 1.3 H Eos # (Auto) 0.4 Baso # (Auto) 0.1 Immature Gran # (Auto) 0.04 H Absolute Nucleated RBC 0.00 Immature Gran % 0 Nucleated RBC % 0 Sodium 141 Potassium 3.4 D Chloride 95 L Carbon Dioxide 39.7 H Anion Gap 6 L BUN 59 H Creatinine 2.2 H D Estim Creat Clear Calc 24.1 L eGFR 24 L BUN/Creatinine Ratio [address] Glu mg/dL 117 Hemoglobin A1c 5.7 Calculated Osmolality 296 H Lactic Acid 0.8 Calcium 8.8 Corrected Calcium 9.0 Phosphorus 3.8 Magnesium 2.5 Total Bilirubin 0.5 AST 27 ALT 26 Alkaline Phosphatase 120 H Total Protein 6.6 Albumin 3.7 Globulin 2.9 Albumin/Globulin Ratio 1.3 Ur Random Creatinine 74 Ur Random Sodium 64.9 Ur Random Potassium 47 Ur Random Chloride 23.8 L Ur Random Calcium < 5 Quality Measures Quality Measures none Advance care planning discussed with:: patient Assessment & Plan Assessment Current Active Medications: Generic Name Dose Route Start Last Admin Trade Name Freq PRN Reason Stop Dose Admin Acetaminophen 650 mg 06/27/24 14:53 Acetaminophen 325 Mg Tablet PO 07/27/24 14:52 Q6H PRN Fever >100.3 or pain Dextrose 25 ml 06/27/24 16:20 Dextrose 50%-Water Inj 50 Ml Syringe IV 07/27/24 16:19 Q15MIN PRN BG 50-70 responsive npo pt Dextrose 50 ml 06/27/24 16:20 Dextrose 50%-Water Inj 50 Ml Syringe IV 07/27/24 16:19 Q15MIN PRN BG <50 OR BG <70 & pt unresponsive Glucagon 1 mg 06/27/24 16:20 Glucagon Inj 1 Mg Vial IM Q15MIN PRN BG <70, and no IV access Heparin Sodium (Porcine) 5,000 unit 06/27/24 21:00 06/28/24 09:36 Heparin Sod Inj 5000 Unit/Ml Vial SC 07/11/24 20:59 5,000 unit Q12HR KODI Administration Meropenem 500 mg/ Sodium 50 mls @ 100 mls/hr 06/28/24 09:30 06/28/24 10:05 Chloride IV 07/04/24 20:59 Infused Q12HR KODI Infusion Protocol Insulin Glargine 10 unit 06/27/24 21:00 06/27/24 21:12 Insulin Glargine (Lantus) 5 Unit/0.05 Ml (Per 5 Units) SC 07/27/24 20:59 10 unit HS KODI Administration Insulin Human Lispro 0 unit 06/27/24 17:00 06/28/24 12:15 Insulin Lispro (Admelog) 1 Unit/0.01 Ml Unit SC 07/27/24 16:59 1 unit AC KODI Administration Protocol Ondansetron HCl 4 mg 06/27/24 14:53 Ondansetron Inj 2 Mg/Ml Inj 2 Ml IV 07/27/24 14:52 Q6H PRN NAUSEA OR VOMITING Protocol Pregabalin 50 mg 06/28/24 21:00 Pregabalin 50 Mg Capsule PO 07/28/24 20:59 BID KODI Vortioxetine 10 mg 06/28/24 10:30 06/28/24 12:15 Vortioxetine 5 Mg Tablet (Non Formulary) PO 07/28/24 10:29 10 mg QDAY KODI Administration Plan Federico Simms is 69 yr female with PMH of insulin-dependent type 2 diabetes, A-fib no longer on Eliquis, hypothyroidism, HFpEF, anxiety, GERD, recurrent UTI, bedbound, akinetic parkinsonism, hyperlipidemia who presented to ED today due to fatigue, weakness, multiple episodes of vomiting since past 3 days. Patient has no fever, chills, diarrhea, chest pain, shortness of breath, or abdominal pain. Patient [facility] as needed but cannot recall how much. Previous admission in December 2023 showed a UTI positive for ESBL Klebsiella pneumoniae. Currently denies any dysuria or difficulty with urination. Patient admitted for management of sepsis secondary to UTI, JATIN, intractable nausea vomiting. #Sepsis 2/2 GNR UTI On physical exam at admission, patient appeared to be very ill looking, slow to respond, lethargic. Urinalysis positive for UTI with leukocyte esterase, WBC 409, 4+ bacteria. Does not meet SIRS 2/4 however WBC is elevated 20 and patient is hypotensive with short time adequate response to bolus fluid. Response is fluctuating with drop in blood pressure after some time post bolus. Signs of acute organ dysfunction including the hypotension and JATIN. Lactic acid not elevated 0.8. Previous admission urine culture positive for ESBL Klebsiella pneumonia. S/p 2.5 L bolus in ED,x1 dose ceftriaxone, 4 mg Zofran. -Continue monitoring vitals and possible additional 500 cc bolus NS ? Due to previous ESBL start patient on meropenem (renally dosed) ? Considering upgrade to ICU for pressors if patient does not remain stable after additional 500 cc bolus ?Urine culture GNR--speciation pending ? Blood culture pending #JATIN most likely prerenal BUN/creatinine ratio greater than 20 indicating prerenal etiology. Underlying cause may be due to poor oral intake versus hypoperfusion in setting of sepsis. Baseline creatinine 0.9. Creatinine at admission 2.8. ?Continue to monitor renal function and response to bolus fluids ? Will consider nephrology consult tomorrow if there is no improvement of creatinine ?nelly u/s tomorrow ?Urine electrolytes showed chloride low at 23. ?Avoid nephrotoxic agents #Intractable nausea/vomiting Ddx: Viral vs medication side effect vs UTI vs ileus Multiple episodes since past 3 days. No diarrhea. -Zofran 4 mg as needed ? Start maintenance fluids if bolus fluids are able to maintain blood pressure adequately # Metabolic alkalosis 2/2 intractable nausea/vomiting-resolving Yesterday bicarb greater than 40. -Today downtrending to 39.7 ? Continue to monitor #Insulin-dependent type 2 diabetes, adequately controlled On admission initial glucose 122. Last A1c 5.4 on December 2023. Patient takes 40 units glargine, Januvia for diabetes at home. 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 Currently RRR, EKG no acute changes, sinus rhythm. #History akinetic parkinsonism -Med rec still pending #History anxiety/depression -Med rec pending #History GERD -Pantoprazole 40 mg daily #History of hypertension At home patient takes lisinopril 2.5 mg p.o. daily and metoprolol tartrate 25 mg p.o. daily ? Med rec pending Health maintenance: Dispo: med surg, sepsis 2/2 UTI DVT prophylaxis: Subcu heparin CODE STATUS: Full code Diet: low carb The patient's management plan was discussed with my attending physician Dr. Adkins and senior Dr. Pauline Cortes, PGY-1
[2024-06-28] MEDS: PREGABALIN 50 MG CAPSULE PO (20:21)
[2024-06-29] VITALS (8 sets, daily range): BP systolic 96–119; BP diastolic 66–76; PULSE 71–84; RESP 15–17; TEMP 35.9–36.7; O2SAT 94–97
[2024-06-29 06:25] LABS: Basophils # (Auto) 0.1 Thou/mm3 (0.0-0.2); Basophils % (Auto) 0 % (0-2.5); Eosinophils # (Auto) 0.3 Thou/mm3 (0.0-0.5); Eosinophils % (Auto) 2 % (0-10); Hematocrit 39.3 % (36.0-46.0); Hemoglobin 12.5 g/dL (12.0-16.0); Immature Granulocytes % (Auto) 0 % (0-0); Immature Granulocytes Auto 0.05 Thou/mm3 (0.00-0.00); Lymphocytes # (Auto) 4.1 Thou/mm3 (1.0-4.8); Lymphocytes % (Auto) 33 % (10-50); Mean Corpuscular HGB Conc 31.8 g/dl (31.0-37.0); Mean Corpuscular Hemoglobin 30.3 pg (25.0-35.0); Mean Corpuscular Volume 95 fL (80-100); Monocytes # (Auto) 1.4 Thou/mm3 (0.0-0.8); Monocytes % (Auto) 11 % (0-12); Neutrophils # (Auto) 6.6 Thou/mm3 (1.8-7.7); Neutrophils % (Auto) 53 % (37-80); Nucleated Red Blood Cell % 0 /100 WBC (0); Platelet Count 207 Thou/mm3 (140-440); RDW Standard Deviation 45.1 fL (36.4-46.3); Red Blood Count 4.12 Miln/mm3 (4.00-5.20); White Blood Count 12.5 Thou/mm3 (3.6-11.0)
[2024-06-29 06:58] LABS: Alanine Aminotransferase 23 U/L (10-49); Albumin, Serum 3.6 gm/dL (3.4-4.8); Albumin/Globulin Ratio 1.3 (1.2-2.2); Alkaline Phosphatase 113 U/L (46-116); Anion Gap 6 (7-16); Aspartate Amino Transferase 13 U/L (0-34); BUN/Creatinine Ratio 25 Ratio (12-20); Bilirubin,Total 0.4 mg/dL (0.3-1.2); Blood Urea Nitrogen 50 mg/dL (9-23); Calcium 9.1 mg/dL (8.3-10.6); Calcium (Corrected) 9.4 mg/dL (8.5-10.1); Chloride 99 mMol/L (98-107); Estimated Creatinine Clearance 27.8 mL/min (>60); Globulin 2.8 gm/dL (2.3-3.5); Glucose 90 mg/dL (74-106); Osmolality,Calculated 290 (275-295); Potassium 3.9 mMol/L (3.4-5.1); Sodium 139 mMol/L (136-145); Total Protein 6.4 gm/dL (5.7-8.2); eGFR 27 See Note
[2024-06-29] MEDS: PREGABALIN 50 MG CAPSULE PO ×2 (10:06→20:39)
[2024-06-29] MEDS: HEPARIN SOD INJ 5000 UNIT/ML VIAL SC ×2 (10:06→20:46)
[2024-06-29] MEDS: MEROPENEM INJ 500 MG in SODIUM CHLORIDE 0.9% (P) 50 ML 100 MG IV ×2 (10:07→20:42)
[2024-06-29] MEDS: VORTIOXETINE 5 MG TABLET (NON FORMULARY) 10 MG PO (12:10)
[2024-06-29] MEDS: INSULIN LISPRO (AdmeLOG) 1 UNIT/0.01 ML UNIT SC (12:20)
--- NOTE | 2024-06-29 14:19 | PD.RESPRO ---
Documentation for date of: 06/29/24 Subjective Subjective Interval history: Patient was seen and examined at bedside. No acute events overnight. Patient is able to have meals now without any episodes of recurrent vomiting. Today she appears to be less somnolent however still slow to respond. Denies any abdominal pain, diarrhea, dysuria. Patient is bedbound and currently has pure wick catheter. Vitals significant for blood pressure 119/67 and stable. Still unsure at this time how much oxygen patient uses outside of hospital and nursing facility. Labs significant for stable WBC 12.5, potassium 3.9, creatinine downtrending to 2.0. UTI resulted ESBL Klebsiella--continue with meropenem Preliminary blood cultures negative. Metabolic alkalosis improving with downtrending bicarb to 34 Review of systems otherwise negative except what is mentioned above. Exam Vital Signs Temp Pulse Resp BP Pulse Ox O2 Del Method O2 Flow Rate 97.1 F 80 15 119/73 96 Nasal Cannula 1 06/29/24 12:00 06/29/24 12:00 06/29/24 12:00 06/29/24 12:00 06/29/24 12:00 06/29/24 12:00 06/29/24 12:00 Narrative Exam General: Alert and oriented x3. No acute distress, cooperative, lethargic Eyes: Pupils are equal and reactive to light bilaterally HEENT: Atraumatic, normocephalic. No JVD noted. Mucosa dry. Cardiovascular: Normal S1 and S2. Regular rate and rhythm. No pitting edema Respiratory: Lungs are clear to auscultation bilaterally. No wheezing or crackles heard. Abdomen: Soft, nontender, not distended, normal bowel sounds. Skin: Warm to touch, dry, no rashes noted Musculoskeletal: No gross injuries. Able to move all 4 extremities. Neuro: Alert and oriented x3. No focal neuro deficits. Psych: Normal affect and mood Objective Labs 06/29/24 04:49 06/29/24 04:49 Labs: Laboratory Results - last 24 hr 06/29/24 04:49 WBC 12.5 H RBC 4.12 Hgb 12.5 Hct 39.3 MCV 95 MCH 30.3 MCHC 31.8 RDW Std Deviation 45.1 Plt Count 207 Neut % (Auto) 53 Lymph % (Auto) 33 [place] % (Auto) 11 Eos % (Auto) 2 Baso % (Auto) 0 Neut # (Auto) 6.6 Lymph # (Auto) 4.1 [place] # (Auto) 1.4 H Eos # (Auto) 0.3 Baso # (Auto) 0.1 Immature Gran # (Auto) 0.05 H Absolute Nucleated RBC 0.00 Immature Gran % 0 Nucleated RBC % 0 Sodium 139 Potassium 3.9 D Chloride 99 Carbon Dioxide 34.0 H Anion Gap 6 L BUN 50 H Creatinine 2.0 H Estim Creat Clear Calc 27.8 L eGFR 27 L BUN/Creatinine Ratio 25 H Glucose 90 Calculated Osmolality 290 Calcium 9.1 Corrected Calcium 9.4 Total Bilirubin 0.4 AST 13 ALT 23 Alkaline Phosphatase 113 Total Protein 6.4 Albumin 3.6 Globulin 2.8 Albumin/Globulin Ratio 1.3 Quality Measures Quality Measures none Advance care planning discussed with:: patient Assessment & Plan Assessment Current Active Medications: Generic Name Dose Route Start Last Admin Trade Name Freq PRN Reason Stop Dose Admin Acetaminophen 650 mg 06/27/24 14:53 Acetaminophen 325 Mg Tablet PO 07/27/24 14:52 Q6H PRN Fever >100.3 or pain Dextrose 25 ml 06/27/24 16:20 Dextrose 50%-Water Inj 50 Ml Syringe IV 07/27/24 16:19 Q15MIN PRN BG 50-70 responsive npo pt Dextrose 50 ml 06/27/24 16:20 Dextrose 50%-Water Inj 50 Ml Syringe IV 07/27/24 16:19 Q15MIN PRN BG <50 OR BG <70 & pt unresponsive Glucagon 1 mg 06/27/24 16:20 Glucagon Inj 1 Mg Vial IM Q15MIN PRN BG <70, and no IV access Heparin Sodium (Porcine) 5,000 unit 06/27/24 21:00 06/29/24 10:06 Heparin Sod Inj 5000 Unit/Ml Vial SC 07/11/24 20:59 5,000 unit Q12HR KODI Administration Meropenem 500 mg/ Sodium 50 mls @ 100 mls/hr 06/28/24 09:30 06/29/24 10:07 Chloride IV 07/04/24 20:59 100 mls/hr Q12HR KODI Administration Protocol Insulin Glargine 10 unit 06/27/24 21:00 06/28/24 20:24 Insulin Glargine (Lantus) 5 Unit/0.05 Ml (Per 5 Units) SC 07/27/24 20:59 Not Given HS KODI Insulin Human Lispro 0 unit 06/27/24 17:00 06/29/24 12:20 Insulin Lispro (Admelog) 1 Unit/0.01 Ml Unit SC 07/27/24 16:59 1 unit AC KODI Administration Protocol Ondansetron HCl 4 mg 06/27/24 14:53 Ondansetron Inj 2 Mg/Ml Inj 2 Ml IV 07/27/24 14:52 Q6H PRN NAUSEA OR VOMITING Protocol Pregabalin 50 mg 06/28/24 21:00 06/29/24 10:06 Pregabalin 50 Mg Capsule PO 07/28/24 20:59 50 mg BID KODI Administration Vortioxetine 10 mg 06/28/24 10:30 06/29/24 12:10 Vortioxetine 5 Mg Tablet (Non Formulary) PO 07/28/24 10:29 10 mg QDAY KODI Administration Plan Federico Simms is 69 yr female with PMH of insulin-dependent type 2 diabetes, A-fib no longer on Eliquis, hypothyroidism, HFpEF, anxiety, GERD, recurrent UTI, bedbound, akinetic parkinsonism, hyperlipidemia who presented to ED today due to fatigue, weakness, multiple episodes of vomiting since past 3 days. Patient has no fever, chills, diarrhea, chest pain, shortness of breath, or abdominal pain. Patient usually uses oxygen in the group home as needed but cannot recall how much. Previous admission in December 2023 showed a UTI positive for ESBL Klebsiella pneumoniae. Currently denies any dysuria or difficulty with urination. Patient admitted for management of sepsis secondary to UTI, JATIN, intractable nausea vomiting. #Sepsis 2/2 ESBL Klebsiella On physical exam at admission, patient appeared to be very ill looking, slow to respond, lethargic. Urinalysis positive for UTI with leukocyte esterase, WBC 409, 4+ bacteria. Does not meet SIRS 2/4 however WBC is elevated 20 and patient is hypotensive with short time adequate response to bolus fluid. Response is fluctuating with drop in blood pressure after some time post bolus. Signs of acute organ dysfunction including the hypotension and JATIN. Lactic acid not elevated 0.8. Previous admission urine culture positive for ESBL Klebsiella pneumonia. S/p 2.5 L bolus in ED,x1 dose ceftriaxone, 4 mg Zofran. -Continue monitoring vitals ? Continue meropenem (renally dosed) -Preliminary blood cultures negative #JATIN most likely prerenal-improving BUN/creatinine ratio greater than 20 indicating prerenal etiology. Underlying cause may be due to poor oral intake versus hypoperfusion in setting of sepsis. Baseline creatinine 0.9. Creatinine at admission 2.8. -Downtrending ?Continue to monitor renal function and response to bolus fluids ?Avoid nephrotoxic agents -continue to monitor #Intractable nausea/vomiting-resolved Ddx: Viral vs medication side effect vs UTI vs ileus Multiple episodes since past 3 days. No diarrhea. -Zofran 4 mg as needed -now tolerating diet # Metabolic alkalosis 2/2 intractable nausea/vomiting-resolving Yesterday bicarb greater than 40. -Today downtrending to 34 ? Continue to monitor #Insulin-dependent type 2 diabetes, adequately controlled On admission initial glucose 122. Last A1c 5.4 on December 2023. Patient takes 40 units glargine, Januvia for diabetes at home. -Held home medications -Bedside blood glucose checks AC -10 units glargine HS -lispro sliding scale -Carb consistent low diet -Diabetes education -A1c pending #History atrial fibrillation Used to be on Eliquis, patient states that hand ii tube bender has stopped medication but cannot recall when. Currently RRR, EKG no acute changes, sinus rhythm. #History akinetic parkinsonism #History anxiety/depression -Trintellix 10mg daily -alprazolam 0.25mg BID PRN #History GERD -Pantoprazole 40 mg daily #History of hypertension At home patient takes lisinopril 2.5 mg p.o. daily and metoprolol tartrate 25 mg p.o. daily Health maintenance: Dispo: med surg, sepsis ESBL klebsiella DVT prophylaxis: Subcu heparin CODE STATUS: Full code Diet: low carb The patient's management plan was discussed with my attending physician Dr. Adkins and senior Dr. Pauline Cortes, PGY-1 Attending Provider Attestation/Addendum I have discussed and was present for the essential components of the history, physical examination, diagnosis, and treatment plan with the resident. I agree with the patient's care as documented by the resident and amended herein by me. Juan Carlos Adkins DO. Although this document has been carefully reviewed, there may still be some phonetic and other typographical errors. These errors are purely grammatical due to imperfections in the software program and should not be construed in any way to compromise the substance of the patient's medical care during this visit.
--- NOTE | 2024-06-29 14:26 | PC.SS ---
Rounding: pt staying for further workup 1-2 more days
[2024-06-29] MEDS: INSULIN GLARGINE (Lantus) 5 UNIT/0.05 ML (PER 5 UNITS) 10 UNIT SC (20:58)
[2024-06-30] VITALS (8 sets, daily range): BP systolic 94–139; BP diastolic 62–86; PULSE 77–86; RESP 16–19; TEMP 36.1–36.4; O2SAT 97–98
[2024-06-30 06:59] LABS: Basophils # (Auto) 0.1 Thou/mm3 (0.0-0.2); Basophils % (Auto) 1 % (0-2.5); Eosinophils # (Auto) 0.4 Thou/mm3 (0.0-0.5); Eosinophils % (Auto) 5 % (0-10); Hematocrit 38.9 % (36.0-46.0); Hemoglobin 12.6 g/dL (12.0-16.0); Immature Granulocytes % (Auto) 0 % (0-0); Immature Granulocytes Auto 0.04 Thou/mm3 (0.00-0.00); Lymphocytes # (Auto) 3.6 Thou/mm3 (1.0-4.8); Lymphocytes % (Auto) 38 % (10-50); Mean Corpuscular HGB Conc 32.4 g/dl (31.0-37.0); Mean Corpuscular Hemoglobin 31.2 pg (25.0-35.0); Mean Corpuscular Volume 96 fL (80-100); Monocytes # (Auto) 1.1 Thou/mm3 (0.0-0.8); Monocytes % (Auto) 12 % (0-12); Neutrophils # (Auto) 4.2 Thou/mm3 (1.8-7.7); Neutrophils % (Auto) 44 % (37-80); Nucleated Red Blood Cell % 0 /100 WBC (0); Platelet Count 198 Thou/mm3 (140-440); RDW Standard Deviation 44.3 fL (36.4-46.3); Red Blood Count 4.04 Miln/mm3 (4.00-5.20); White Blood Count 9.5 Thou/mm3 (3.6-11.0)
[2024-06-30 07:20] LABS: Alanine Aminotransferase 19 U/L (10-49); Albumin, Serum 3.6 gm/dL (3.4-4.8); Albumin/Globulin Ratio 1.3 (1.2-2.2); Alkaline Phosphatase 105 U/L (46-116); Anion Gap 4 (7-16); Aspartate Amino Transferase 19 U/L (0-34); BUN/Creatinine Ratio 25 Ratio (12-20); Bilirubin,Total 0.4 mg/dL (0.3-1.2); Blood Urea Nitrogen 47 mg/dL (9-23); Calcium 9.2 mg/dL (8.3-10.6); Calcium (Corrected) 9.5 mg/dL (8.5-10.1); Carbon Dioxide 33.6 mMol/L (20.0-31.0); Chloride 98 mMol/L (98-107); Creatinine (Component) 1.9 mg/dL (0.6-1.3); Estimated Creatinine Clearance 29.3 mL/min (>60); Globulin 2.7 gm/dL (2.3-3.5); Glucose 107 mg/dL (74-106); Osmolality,Calculated 284 (275-295); Potassium 4.2 mMol/L (3.4-5.1); Sodium 136 mMol/L (136-145); Total Protein 6.3 gm/dL (5.7-8.2); eGFR 29 See Note
[2024-06-30] MEDS: MEROPENEM INJ 500 MG in SODIUM CHLORIDE 0.9% (P) 50 ML 100 MG IV ×2 (09:47→20:18)
[2024-06-30] MEDS: PREGABALIN 50 MG CAPSULE PO ×2 (09:48→20:23)
[2024-06-30] MEDS: HEPARIN SOD INJ 5000 UNIT/ML VIAL SC ×2 (09:48→20:16)
[2024-06-30] MEDS: VORTIOXETINE 5 MG TABLET (NON FORMULARY) 10 MG PO (09:48)
--- NOTE | 2024-06-30 11:18 | PC.NURSE ---
Called and spoke to Lina at [facility], pt takes Fosfomycin Tomethamine 3 GM every Monday last dose 06/24/24
[2024-06-30] MEDS: INSULIN LISPRO (AdmeLOG) 1 UNIT/0.01 ML UNIT SC ×2 (11:48→17:15)
--- NOTE | 2024-06-30 14:08 | PD.RESPRO ---
Documentation for date of: 06/30/24 Subjective Subjective Interval history: Patient was seen and examined at bedside. No acute events overnight. Patient is lying comfortably in bed, with pure wick catheter in place UTI resulted ESBL Klebsiella, today is day 4 of IV meropenem WBC 19.8 --> 12.5 and creatinine improved 2.2 --> 1.9 Patient denies taking fosfomycin weekly, likely an error on med reconciliation Infectious disease to be consulted for further recommendations, regarding oral antibiotics in preparation for discharge Review of systems otherwise negative except what is mentioned above. Exam Vital Signs Temp Pulse Resp BP Pulse Ox O2 Del Method O2 Flow Rate 97.1 F 79 16 139/84 H 98 Nasal Cannula 1 06/30/24 12:00 06/30/24 12:00 06/30/24 12:00 06/30/24 12:00 06/30/24 12:00 06/30/24 12:00 06/30/24 12:00 Narrative Exam Constitutional Alert, oriented x3 HEENT Vision grossly intact. Patent nares. Trachea midline. Respiratory Chest normal on inspection and clear to auscultation bilaterally. Cardiovascular S1 and S2 audible, RRR. No murmurs or carotid bruit. No gross JVD. Abdominal Soft and non tender to palpation in all quadrants. Mildly distended BS + Genitourinary No bladder tenderness, no flank pain. Normal to palpation. Musculoskeletal Extremities tone within normal limits. No LE edema. Neurological CN II - XII grossly intact. Extremity motor and sensation grossly intact. Skin Warm, dry and intact. Senile purpurae, bilateral upper extremity Psychiatric Patient has a good affect, is cooperative. Objective Labs 06/30/24 05:48 06/30/24 05:48 Labs: Laboratory Results - last 24 hr 06/30/24 05:48 WBC 9.5 RBC 4.04 Hgb 12.6 Hct 38.9 MCV 96 MCH 31.2 MCHC 32.4 RDW Std Deviation 44.3 Plt Count 198 Neut % (Auto) 44 Lymph % (Auto) 38 [place] % (Auto) 12 Eos % (Auto) 5 Baso % (Auto) 1 Neut # (Auto) 4.2 Lymph # (Auto) 3.6 [place] # (Auto) 1.1 H Eos # (Auto) 0.4 Baso # (Auto) 0.1 Immature Gran # (Auto) 0.04 H Absolute Nucleated RBC 0.00 Immature Gran % 0 Nucleated RBC % 0 Sodium 136 Potassium 4.2 Chloride 98 Carbon Dioxide 33.6 H Anion Gap 4 L BUN 47 H Creatinine 1.9 H Estim Creat Clear Calc 29.3 L eGFR 29 L BUN/Creatinine Ratio 25 H Glucose 107 H Calculated Osmolality 284 Calcium 9.2 Corrected Calcium 9.5 Total Bilirubin 0.4 AST 19 ALT 19 Alkaline Phosphatase 105 Total Protein 6.3 Albumin 3.6 Globulin 2.7 Albumin/Globulin Ratio 1.3 Quality Measures Quality Measures none Advance care planning discussed with:: patient Assessment & Plan Assessment Current Active Medications: Generic Name Dose Route Start Last Admin Trade Name Freq PRN Reason Stop Dose Admin Acetaminophen 650 mg 06/27/24 14:53 Acetaminophen 325 Mg Tablet PO 07/27/24 14:52 Q6H PRN Fever >100.3 or pain Dextrose 25 ml 06/27/24 16:20 Dextrose 50%-Water Inj 50 Ml Syringe IV 07/27/24 16:19 Q15MIN PRN BG 50-70 responsive npo pt Dextrose 50 ml 06/27/24 16:20 Dextrose 50%-Water Inj 50 Ml Syringe IV 07/27/24 16:19 Q15MIN PRN BG <50 OR BG <70 & pt unresponsive Glucagon 1 mg 06/27/24 16:20 Glucagon Inj 1 Mg Vial IM Q15MIN PRN BG <70, and no IV access Heparin Sodium (Porcine) 5,000 unit 06/27/24 21:00 06/30/24 09:48 Heparin Sod Inj 5000 Unit/Ml Vial SC 07/11/24 20:59 5,000 unit Q12HR KODI Administration Meropenem 500 mg/ Sodium 50 mls @ 100 mls/hr 06/28/24 09:30 06/30/24 09:47 Chloride IV 07/04/24 20:59 100 mls/hr Q12HR KODI Administration Protocol Insulin Glargine 10 unit 06/27/24 21:00 06/29/24 20:58 Insulin Glargine (Lantus) 5 Unit/0.05 Ml (Per 5 Units) SC 07/27/24 20:59 10 unit HS KODI Administration Insulin Human Lispro 0 unit 06/27/24 17:00 06/30/24 11:48 Insulin Lispro (Admelog) 1 Unit/0.01 Ml Unit SC 07/27/24 16:59 1 unit AC KODI Administration Protocol Ondansetron HCl 4 mg 06/27/24 14:53 Ondansetron Inj 2 Mg/Ml Inj 2 Ml IV 07/27/24 14:52 Q6H PRN NAUSEA OR VOMITING Protocol Pregabalin 50 mg 06/28/24 21:00 06/30/24 09:48 Pregabalin 50 Mg Capsule PO 07/28/24 20:59 50 mg BID KODI Administration Vortioxetine 10 mg 06/28/24 10:30 06/30/24 09:48 Vortioxetine 5 Mg Tablet (Non Formulary) PO 07/28/24 10:29 10 mg QDAY KODI Administration Plan Ms Federico Simms is 69 yr female with PMH of insulin-dependent type 2 diabetes, A-fib no longer on Eliquis, hypothyroidism, HFpEF, anxiety, GERD, recurrent UTI, bedbound, akinetic parkinsonism, hyperlipidemia who presented to ED today due to fatigue, weakness, multiple episodes of vomiting since past 3 days. Patient has no fever, chills, diarrhea, chest pain, shortness of breath, or abdominal pain. Patient usually uses oxygen in the senior care as needed but cannot recall how much. Previous admission in December 2023 showed a UTI positive for ESBL Klebsiella pneumoniae. Currently denies any dysuria or difficulty with urination. Patient admitted for management of sepsis secondary to UTI, JATIN, intractable nausea vomiting. 1. Sepsis 2. JATIN , prerenal secondary to 3. ESBL Klebsiella UTI - Sepsis, on physical exam at admission, patient appeared to be very ill looking, slow to respond, lethargic. LA wnl - Urinalysis positive for UTI with leukocyte esterase, WBC 409, 4+ bacteria - BUN/creatinine ratio greater than 20 indicating prerenal etiology - RFT: Creatinine 2.8 --> 1.9 (baseline creatinine 0.9) - SIRS: WBC is elevated 20, patient is hypotensive with short time adequate response to bolus fluid, signs of acute organ dysfunction including the hypotension and JATIN. - Hx of previous admission for ESBL Klebsiella UTI. - S/p 2.5 L bolus in ED, IV ceftriaxone x1 Plan: - 06/30 : DAY 4 : Continue IV meropenem (renally dosed) - ID consulted for further recommendations re: transitioning to oral naitbiotics vs. continuing IV Meropenem x 3 more days - Renally dose medications like anticoagulants and antibiotics - Avoid nephrotoxic agents 4. Intractable nausea/vomiting - improved Ddx: Viral vs medication side effect vs UTI vs ileus Multiple episodes since past 3 days. No diarrhea. Plan: - PRN Zofran 4 mg q6H - now tolerating diet, continue to monitor 5. Insulin-dependent type 2 diabetes, adequately controlled - On admission initial glucose 122. Last A1c 5.4 on December 2023. - 06/28 HbA1c = 5.7 (previously 6.4) - Patient takes 40 units glargine, Januvia for diabetes at home. Plan: - Held home medications - Bedside blood glucose checks AC - 10 units glargine HS - On lispro sliding scale - Carb consistent low diet - Diabetes education - Will resume Januvia once JATIN resolves 6. History atrial fibrillation 7. Primary hypertension At home patient takes lisinopril 2.5 mg p.o. daily and metoprolol tartrate 25 mg p.o. 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 Currently RRR, EKG no acute changes, sinus rhythm. 8. History akinetic parkinsonism 9. History anxiety/depression -Trintellix 10mg daily -alprazolam 0.25mg BID PRN 10. GERD -Pantoprazole 40 mg daily Health maintenance: Dispo: med surg, sepsis ESBL klebsiella. Pending ID recs DVT prophylaxis: Subcu heparin Diet: low carb CODE STATUS: Full code Plan of care discussed with attending Dr Azar , Chang Pereira MD, PGY 2 Attending Provider Attestation/Addendum Shana Rutherford DO, attest that I was physically present for the rushing portions of the service and evaluated the patient with the resident and I reviewed and discussed the case with the resident and agree with the resident's findings and plans of care as documented above Patient seen and evaluated this AM. Patient states she was at a friend's house and does not recall feeling unwell, but woke up in the hospital. She reports frequent dysuria and UTIs. Per chart review, it appears that patient receives fosfomycin prophylactically every 7 days at SNF, which was confirmed by nursing. Next dose due tomorrow on Monday. ESBL klebsiella appears to be sensitive to augmentin and bactrim, but unusual that she continues to have UTI despite fosfomycin. Will have ID see patient. Patient denies any back pain, chest pain, fevers, chills, nausea or vomiting.
[2024-06-30] MEDS: POLYETHYLENE GLYCOL 17 GM PACKET PO (15:23)
--- NOTE | 2024-06-30 16:12 | PC.SS ---
Rounding: Pending ID reccs
[2024-06-30] MEDS: GLYCERIN, ADULT 1 EA SUPP 1 EACH PR (17:03)
[2024-06-30] MEDS: INSULIN GLARGINE (Lantus) 5 UNIT/0.05 ML (PER 5 UNITS) 10 UNIT SC (20:14)
[2024-07-01] VITALS (7 sets, daily range): BP systolic 95–124; BP diastolic 60–74; PULSE 67–86; RESP 16–18; TEMP 36.2–36.6; O2SAT 89–98
[2024-07-01 06:19] LABS: Basophils # (Auto) 0.1 Thou/mm3 (0.0-0.2); Basophils % (Auto) 1 % (0-2.5); Eosinophils # (Auto) 0.5 Thou/mm3 (0.0-0.5); Eosinophils % (Auto) 5 % (0-10); Hematocrit 39.1 % (36.0-46.0); Hemoglobin 12.7 g/dL (12.0-16.0); Immature Granulocytes % (Auto) 1 % (0-0); Immature Granulocytes Auto 0.06 Thou/mm3 (0.00-0.00); Lymphocytes # (Auto) 3.9 Thou/mm3 (1.0-4.8); Lymphocytes % (Auto) 40 % (10-50); Mean Corpuscular HGB Conc 32.5 g/dl (31.0-37.0); Mean Corpuscular Hemoglobin 30.9 pg (25.0-35.0); Mean Corpuscular Volume 95 fL (80-100); Monocytes # (Auto) 1.1 Thou/mm3 (0.0-0.8); Monocytes % (Auto) 11 % (0-12); Neutrophils # (Auto) 4.2 Thou/mm3 (1.8-7.7); Neutrophils % (Auto) 43 % (37-80); Nucleated Red Blood Cell % 0 /100 WBC (0); Platelet Count 189 Thou/mm3 (140-440); RDW Standard Deviation 43.2 fL (36.4-46.3); Red Blood Count 4.11 Miln/mm3 (4.00-5.20); White Blood Count 9.7 Thou/mm3 (3.6-11.0)
[2024-07-01 06:51] LABS: Alanine Aminotransferase 18 U/L (10-49); Albumin, Serum 3.5 gm/dL (3.4-4.8); Albumin/Globulin Ratio 1.3 (1.2-2.2); Alkaline Phosphatase 111 U/L (46-116); Anion Gap 7 (7-16); Aspartate Amino Transferase 18 U/L (0-34); BUN/Creatinine Ratio 25 Ratio (12-20); Bilirubin,Total 0.2 mg/dL (0.3-1.2); Blood Urea Nitrogen 45 mg/dL (9-23); Calcium 9.4 mg/dL (8.3-10.6); Calcium (Corrected) 9.8 mg/dL (8.5-10.1); Carbon Dioxide 31.1 mMol/L (20.0-31.0); Chloride 98 mMol/L (98-107); Creatinine (Component) 1.8 mg/dL (0.6-1.3); Estimated Creatinine Clearance 30.9 mL/min (>60); Globulin 2.8 gm/dL (2.3-3.5); Glucose 120 mg/dL (74-106); Osmolality,Calculated 284 (275-295); Potassium 4.5 mMol/L (3.4-5.1); Sodium 136 mMol/L (136-145); Total Protein 6.3 gm/dL (5.7-8.2); eGFR 30 See Note
--- NOTE | 2024-07-01 08:00 | ESPR_ITS ---
<Statement entered by Cookie Crawford MD - 07/02/24 07:37> Patient was seen and examined by me personally. I agree with most of the assessment and plan as discussed with the internet technology manager physician, and my attending, Dr. Azar. Patient doing well on merrem. Initial plan to place PICC line and DC patient to SNF for ertapenem to complete course, however patient refused PICC line placement. Will complete merrem course inpatient. Cookie Crawford MD, PGY-3 Documentation for date of: 07/01/24 Subjective Subjective Interval history: No acute overnight events. Patient doing well, denies pain. Tolerating oral intake. Denies fever, chills, headaches, chest pain, sob, cough, GI or urinary symptoms. Exam Vital Signs Temp Pulse Resp BP Pulse Ox O2 Del Method O2 Flow Rate 97.2 F 67 18 124/74 98 Nasal Cannula 1.5 07/01/24 04:00 07/01/24 04:00 07/01/24 04:00 07/01/24 04:00 07/01/24 04:00 07/01/24 04:00 07/01/24 04:00 Narrative Exam Constitutional Alert, oriented x3 HEENT Vision grossly intact. Patent nares. Trachea midline. Respiratory Chest normal on inspection and clear to auscultation bilaterally. Cardiovascular S1 and S2 audible, RRR. No murmurs or carotid bruit. No gross JVD. Abdominal Soft and non tender to palpation in all quadrants. Mildly distended BS + Genitourinary No bladder tenderness, no flank pain. Normal to palpation. Musculoskeletal Extremities tone within normal limits. No LE edema. Neurological CN II - XII grossly intact. Extremity motor and sensation grossly intact. Skin Warm, dry and intact. Senile purpurae, bilateral upper extremity Psychiatric Patient has a good affect, is cooperative Objective Labs 07/02/24 04:57 07/02/24 04:57 Labs: Laboratory Results - last 24 hr 07/01/24 05:30 WBC 9.7 RBC 4.11 Hgb 12.7 Hct 39.1 MCV 95 MCH 30.9 MCHC 32.5 RDW Std Deviation 43.2 Plt Count 189 Neut % (Auto) 43 Lymph % (Auto) 40 [place] % (Auto) 11 Eos % (Auto) 5 Baso % (Auto) 1 Neut # (Auto) 4.2 Lymph # (Auto) 3.9 [place] # (Auto) 1.1 H Eos # (Auto) 0.5 Baso # (Auto) 0.1 Immature Gran # (Auto) 0.06 H Absolute Nucleated RBC 0.00 Immature Gran % 1 H Nucleated RBC % 0 Sodium 136 Potassium 4.5 Chloride 98 Carbon Dioxide 31.1 H Anion Gap 7 BUN 45 H Creatinine 1.8 H Estim Creat Clear Calc 30.9 L eGFR 30 L BUN/Creatinine Ratio 25 H Glucose 120 H Calculated Osmolality 284 Calcium 9.4 Corrected Calcium 9.8 Total Bilirubin 0.2 L AST 18 ALT 18 Alkaline Phosphatase 111 Total Protein 6.3 Albumin 3.5 Globulin 2.8 Albumin/Globulin Ratio 1.3 Quality Measures Quality Measures none Advance care planning discussed with:: patient Assessment & Plan Assessment Current Active Medications: Generic Name Dose Route Start Last Admin Trade Name Freq PRN Reason Stop Dose Admin Acetaminophen 650 mg 06/27/24 14:53 Acetaminophen 325 Mg Tablet PO 07/27/24 14:52 Q6H PRN Fever >100.3 or pain Dextrose 25 ml 06/27/24 16:20 Dextrose 50%-Water Inj 50 Ml Syringe IV 07/27/24 16:19 Q15MIN PRN BG 50-70 responsive npo pt Dextrose 50 ml 06/27/24 16:20 Dextrose 50%-Water Inj 50 Ml Syringe IV 07/27/24 16:19 Q15MIN PRN BG <50 OR BG <70 & pt unresponsive Glucagon 1 mg 06/27/24 16:20 Glucagon Inj 1 Mg Vial IM Q15MIN PRN BG <70, and no IV access Heparin Sodium (Porcine) 5,000 unit 06/27/24 21:00 06/30/24 20:16 Heparin Sod Inj 5000 Unit/Ml Vial SC 07/11/24 20:59 5,000 unit Q12HR KODI Administration Meropenem 500 mg/ Sodium 50 mls @ 100 mls/hr 06/28/24 09:30 06/30/24 20:18 Chloride IV 07/04/24 20:59 100 mls/hr Q12HR KODI Administration Protocol Insulin Glargine 10 unit 06/27/24 21:00 06/30/24 20:14 Insulin Glargine (Lantus) 5 Unit/0.05 Ml (Per 5 Units) SC 07/27/24 20:59 10 unit HS KODI Administration Insulin Human Lispro 0 unit 06/27/24 17:00 07/01/24 07:45 Insulin Lispro (Admelog) 1 Unit/0.01 Ml Unit SC 07/27/24 16:59 Not Given AC [facility] Protocol Ondansetron HCl 4 mg 06/27/24 14:53 Ondansetron Inj 2 Mg/Ml Inj 2 Ml IV 07/27/24 14:52 Q6H PRN NAUSEA OR VOMITING Protocol Pregabalin 50 mg 06/28/24 21:00 06/30/24 20:23 Pregabalin 50 Mg Capsule PO 07/28/24 20:59 50 mg BID KODI Administration Vortioxetine 10 mg 06/28/24 10:30 06/30/24 09:48 Vortioxetine 5 Mg Tablet (Non Formulary) PO 07/28/24 10:29 10 mg QDAY KODI Administration Plan In summary: 69-year-old female PMHx of IDDM, A-fib no longer on ELIQUIS, hypothyroidism, HFpEF, anxiety, GERD, recurrent UTI, bedbound, akinetic parkinsonism, HLD presented with fatigue and weakness, multiple episodes of vomiting, admitted for sepsis secondary to UTI, JATIN intractable nausea and vomiting. UTI grew ESBL Klebsiella, patient on MEROPENEM. ID consulted who recommended ERTAPENEM. Pending PICC line placement. Patient will discharge to SNF for IV ANTIBIOTICS. Overall symptoms have improved. # Sepsis ? resolved # ESBL Klebsiella UTI, symptomatic Sepsis on admission with leukocytosis and hypotension UA positive for UTI, culture grew ESBL Klebsiella which is also present on previous admission S/p 2.5 L bolus, continued on ANTIBIOTICS, leukocytosis resolved Overall symptoms improved ID was consulted who recommended continuing carbapenem PICC line placement pending, patient will discharge to SNF with IV ANTIBIOTICS ? Continue MEROPENEM TID ? Daily CBC # JATIN, prerenal versus renal In settings of UTI BUN/creatinine ratio greater than 20 indicating prerenal etiology RFT: Creatinine 2.8 --> 1.9 (baseline creatinine 0.9) ? Continue current management ? Daily CMP ? Avoid NEPHROTOXINS ? Renally dose meds # Intractable nausea/vomiting - improved Ddx: Viral vs medication side effect vs UTI vs ileus Multiple episodes since past 3 days. No diarrhea. Plan: - PRN Zofran 4 mg q6H - now tolerating diet, continue to monitor # Insulin-dependent type 2 diabetes, adequately controlled Bedside GLUCOSE 116 Continue current regimen - On admission initial glucose 122. Last A1c 5.4 on December 2023. - 06/28 HbA1c = 5.7 (previously 6.4) - Patient takes 40 units glargine, Januvia for diabetes at home. Plan: - Held home medications - Bedside blood glucose checks AC - 10 units glargine HS - On lispro sliding scale - Carb consistent low diet - Diabetes education - Will resume Januvia once JATIN resolves # History atrial fibrillation # Primary hypertension At home patient takes lisinopril 2.5 mg p.o. daily and metoprolol tartrate 25 mg p.o. 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 Currently RRR, EKG no acute changes, sinus rhythm. # History akinetic parkinsonism # History anxiety/depression ? Continue home TRINTELLIX 10 mg daily Continue home ALPRAZOLAM 0.25 mg BID PRN # GERD ? PANTOPRAZOLE 40 mg daily Health maintenance: Dispo: med surg, sepsis ESBL klebsiella. Pending ID recs DVT prophylaxis: Subcu heparin Diet: low carb CODE STATUS: Full code Patient case was discussed with attending, Dr. Carly Azar DO and senior residents Dr. Crawford and Dr. Pereira. Kaur Le DO PGYI Attending Provider Attestation/Addendum Krish, Shana Azar DO, attest that I was physically present for the rushing portions of the service and evaluated the patient with the resident and I reviewed and discussed the case with the resident and agree with the resident's findings and plans of care as documented above Patient seen and evaluated this AM. No acute events overnight. ID recommends ertapenem. PICC line was ordered, but patient refused PICC line placement and would like to finish Abx treatment in house. Continue with meropenem. Anticipate DC on 07/04 after last dose of meropenem
[2024-07-01] MEDS: HEPARIN SOD INJ 5000 UNIT/ML VIAL SC ×2 (08:44→20:19)
[2024-07-01] MEDS: VORTIOXETINE 5 MG TABLET (NON FORMULARY) 10 MG PO (08:44)
[2024-07-01] MEDS: PREGABALIN 50 MG CAPSULE PO ×2 (08:44→20:19)
[2024-07-01] MEDS: MEROPENEM INJ 500 MG in SODIUM CHLORIDE 0.9% (P) 50 ML 100 MG IV ×2 (08:44→20:18)
--- NOTE | 2024-07-01 09:29 | PD.IDPROG ---
Subjective Subjective Interval history: no admitted urinary sx. is on some O2 wtih no hx of pulm disease noted. Exam Vital Signs Temp Pulse Resp BP Pulse Ox O2 Del Method O2 Flow Rate 97.1 F 77 18 95/60 97 Nasal Cannula 1.5 07/01/24 08:00 07/01/24 08:00 07/01/24 08:00 07/01/24 08:00 07/01/24 08:00 07/01/24 08:00 07/01/24 08:00 Narrative Exam On O2. not ill appearing otherwise, but if she had pneumonia too, then we are stuck with iv rx Objective - Internal Medicine Labs 07/01/24 05:30 07/01/24 05:30 Labs: Laboratory Results - last 24 hr 07/01/24 05:30 WBC 9.7 RBC 4.11 Hgb 12.7 Hct 39.1 MCV 95 MCH 30.9 MCHC 32.5 RDW Std Deviation 43.2 Plt Count 189 Neut % (Auto) 43 Lymph % (Auto) 40 [place] % (Auto) 11 Eos % (Auto) 5 Baso % (Auto) 1 Neut # (Auto) 4.2 Lymph # (Auto) 3.9 [place] # (Auto) 1.1 H Eos # (Auto) 0.5 Baso # (Auto) 0.1 Immature Gran # (Auto) 0.06 H Absolute Nucleated RBC 0.00 Immature Gran % 1 H Nucleated RBC % 0 Sodium 136 Potassium 4.5 Chloride 98 Carbon Dioxide 31.1 H Anion Gap 7 BUN 45 H Creatinine 1.8 H Estim Creat Clear Calc 30.9 L eGFR 30 L BUN/Creatinine Ratio 25 H Glucose 120 H Calculated Osmolality 284 Calcium 9.4 Corrected Calcium 9.8 Total Bilirubin 0.2 L AST 18 ALT 18 Alkaline Phosphatase 111 Total Protein 6.3 Albumin 3.5 Globulin 2.8 Albumin/Globulin Ratio 1.3 Assessment & Plan A&P Narrative pneumonia. not striking but is on O2 bacteriuria with n/v on admit ckd a1c 5.7 was sl higher previously, she is convinced she has dm btw. suggest iv ertapenem 1 gm iv daily thru 07/04 () given start of merrem on 06/28 no labs needed. but with ckd and pneumonia and limited options. will stay with carbapenem Time Spent With Patient Time: Total time spent is greater than 50% in coordination of care (as documented) at patient's floor/unit and/or counseling patient:
[2024-07-01 10:29] LABS: Hepatitis C Antibody Non Reactive (Non React)
--- NOTE | 2024-07-01 10:47 | PC.SS ---
Addendum entered by Mattie Hays 07/01/24 11:21: Physician aware and will provide i.v. med today and d/c late today to [facility] . Start new i.v. med tomorrow until Addendum entered by Mattie Hays 07/01/24 11:13: Facility wants patient to have her i.v. dose today before she leaves for facility. Addendum entered by Mattie Hays 07/01/24 11:10: Follow up note: Spoke to physician who states patient will need 3 more days of i.v. [facility] is agreeable. Picc line to be placed today then d/c Original Note: Follow up note: Patient is pending consult from ID physician. Pending d/c back to [facility]. updated facility.
--- NOTE | 2024-07-01 11:10 | ESCONSULT_ITS ---
RE: WILI TRIANA : 1955 DATE OF CONSULTATION: 07/01/2024 REFERRING PHYSICIAN: Paulo Adkins MD REASON FOR CONSULTATION: UTI versus asymptomatic bacteriuria in a 69-year-old, admitted for nausea and vomiting. HISTORY OF PRESENT ILLNESS: The patient is admitted for nausea and vomiting from [facility]. She has possible pneumonia on chest imaging, which is actually not that bad and possible UTI, which is improved from previous. She still has a lot of white cells, so I see the interest in treating her. Sadly, with her chronic kidney disease and history of diabetes, we are going to need to treat her with the carbapenem. PAST MEDICAL HISTORY: Her medical problems are limited. She denies any health concerns. She is 4 para 3 with 1 miscarriage and she reports a history of diabetes, but her current A1c is 5.7 and not too bad. SURGICAL HISTORY: Includes only 3 C-sections for her babies. ALLERGIES: TOPICAL AGENTS. IMMUNIZATIONS: Last tetanus is not known. She does not take a flu shot every year, has not had a COVID vaccine or had pneumococcal vaccine. FAMILY HISTORY: Unremarkable. SOCIAL HISTORY: She lives at the [facility], but has a home in [place]. She is a lifelong nonsmoker and uses oxygen on a p.r.n. basis. PHYSICAL EXAMINATION: The patient is in no distress. She is on some supplemental oxygen at 1 liter per minute, does not seem to be in any distress. She does have occasional moist cough and benign abdomen. ASSESSMENT AND RECOMMENDATIONS: Asymptomatic bacteriuria versus urinary tract infection. Because the primary team calls it urinary tract infection, we are going to treat it as such. It does look like she had a fosfomycin about 6 months ago, which is reasonable, but because of that she may have some resistance. Alternatively, if you wish, you can check fosfomycin sensitivity on her urine and look at that, but because the drug has very little effect for pneumonia because it does not last in the blood very long. We probably ought to just stay with the carbapenem for 7 days and given that the patient's treatment was started on , we will probably finish with ertapenem on morning and ertapenem of 1 g IV daily through . She does have resistance to quinolones and other agents such as Macrobid and bactrim, both of which are not recommended in ckd. They are effective in this setting and Augmentin is not and nor tetracyclines. So, we will usually just use a carbapenem thru am. DT: 09:40:36 TT: 10:23:00 Ref: [id number] - TID: [id number] MTDD
[2024-07-01] MEDS: INSULIN LISPRO (AdmeLOG) 1 UNIT/0.01 ML UNIT SC ×2 (11:56→17:01)
--- NOTE | 2024-07-01 14:20 | PC.SS ---
SS follow up note; Patient refused pic line, per patient's nurse Aliyah.
--- NOTE | 2024-07-01 15:50 | ESCONSULT_ITS ---
<Statement entered by Sylvester Crane MD - 07/02/24 07:19> pt seen with resident. all findings confirmed. see additional notes for details HPI Data of Consult Requesting Physician: Paulo Adkins DO Admitting Provider: Paulo Adkins DO Attending Provider: Paulo Adkins DO Primary Care Provider: Jamarcus Botello MD Consult Narrative Reason for consult: ESBL [place] UTI History of present illness: Patient is a 69 year old female with history of insulin-dependent type 2 diabetes, A-fib no longer on Eliquis, hypothyroidism, HFpEF (60-65% October 2023), anxiety, GERD, recurrent UTI, bedbound, akinetic parkinsonism, and hyperlipidemia who presented to the ED from [facility] with concerns of fatigue, weakness, and episodes of vomiting for 3 days. Given history of ESBL Klebsiella UTI, patient was admitted for intractable nausea/vomiting with possible sepsis secondary to urinary tract infection. Today, patient is examined bedside and denies any complaints. She states she did not recall coming into the ED, states she was asleep, then woke up here in the hospital. Denies and dysuria or abdominal pain, states her UTIs in the past are also asymptomatic. Urine cultures reveal Klebsiella Oxytoca with MDR and ESBL. Infectious disease consulted for ESBL Klebsiella UTI. PMH: insulin-dependent type 2 diabetes, A-fib no longer on Eliquis, hypothyroidism, HFpEF (60-65% October 2023), anxiety, GERD, recurrent UTI, bedbound, akinetic parkinsonism, and hyperlipidemia Surgical Hx: 3 c-sections Family Hx: Unknown, patient states she adopted Social Hx: Denies alcohol, tobacco, or illicit drug use Travel Hx: No recent travels endorsed Vaccination history: Denies COVID, flu, pneumococcal, or tetanus vaccinations cc:: cc: Paulo Adkins DO Review of Systems Review of Systems Narrative Review of Systems: GENERAL: Denies fevers/chills or diaphoresis. HEENT: Denies headache or visual/hearing changes. Denies nasal discharge. NEURO: Denies unusual weakness or difficulty speaking. CARDIO: Denies chest pain or palpitations. PULM: Denies SOB, coughing, or wheezing. GI: Denies abdominal pain, nausea, vomiting, diarrhea URO: Denies burning/itching/pain/urinary changes. MSK/EXT/SKIN: Denies joint/skeletal/muscle pain Past Medical History Past Medical History Comments PMH COMMENT: PMH: insulin-dependent type 2 diabetes, A-fib no longer on Eliquis, hypothyroidism, HFpEF (60-65% October 2023), anxiety, GERD, recurrent UTI, bedbound, akinetic parkinsonism, and hyperlipidemia Surgical Hx: 3 c-sections Family Hx: Unknown, patient states she adopted Social Hx: Denies alcohol, tobacco, or illicit drug use Travel Hx: No recent travels endorsed Vaccination history: Denies COVID, flu, pneumococcal, or tetanus vaccinations Exam Vital Signs Temp Pulse Resp BP Pulse Ox O2 Del Method O2 Flow Rate 97.3 F 78 16 101/66 96 Nasal Cannula 1.5 07/01/24 12:00 07/01/24 14:10 07/01/24 14:10 07/01/24 12:00 07/01/24 14:10 07/01/24 12:00 07/01/24 14:10 Narrative Exam General: AOx3, cooperative, in no acute distress HEENT: Atraumatic/normocephalic, TEDDY, neck supple without masses Heart: RRR, S1 and S2 without clicks or murmurs Lungs: Clear on auscultation bilaterally, no difficulty breathing Abdomen: Soft, nontender. Bowel sounds present on all quadrants Skin: Intact, no cyanosis or edema noted Neuro: No focal neurological deficits noted Results Labs 07/01/24 05:30 07/01/24 05:30 Labs: Short CBC 07/01/24 Range/Units 05:30 WBC 9.7 (3.6-11.0) Thou/mm3 Hgb 12.7 (12.0-16.0) g/dL Hct 39.1 (36.0-46.0) % Plt Count 189 (140-440) Thou/mm3 BMP 07/01/24 05:30 Sodium 136 Potassium 4.5 Chloride 98 Carbon Dioxide 31.1 H BUN 45 H Creatinine 1.8 H Glucose 120 H Calcium 9.4 Liver Function 07/01/24 Range/Units 05:30 Total Bilirubin 0.2 L (0.3-1.2) mg/dL AST 18 (0-34) U/L ALT 18 (10-49) U/L Alkaline Phosphatase 111 (46-116) U/L Albumin 3.5 (3.4-4.8) gm/dL Quality Measures Quality Measures VTE prophylaxis (Heparin subcutaneously) Advance care planning discussed with:: patient Medications Home Medications and Allergies Home Medications ?Medication ?Instructions ?Recorded ?Confirmed ?Type apixaban 5 mg tablet (Eliquis) 5 mg PO BID 09/19/23 06/27/24 History metoprolol tartrate 25 mg tablet 12.5 mg PO BID 09/19/23 06/27/24 History acetaminophen 325 mg tablet 650 mg PO Q4HR PRN Pain (Scale 09/20/23 06/27/24 History (Tylenol) Score 1-3) insulin glargine 100 unit/mL (3 40 unit subcut HS 09/20/23 06/27/24 History mL) subcutaneous pen (Lantus Solostar U-100 Insulin) meclizine 25 mg tablet 25 mg PO BID PRN Nausea And 09/20/23 06/27/24 History Vomiting ondansetron HCl 4 mg tablet 4 mg PO TID PRN Nausea 09/20/23 06/27/24 History sitagliptin phosphate 100 mg 100 mg PO QDAY 09/20/23 06/27/24 History tablet (Januvia) docusate sodium 250 mg capsule 250 mg PO BID 10/07/23 06/27/24 History (DSS) folic acid 1 mg tablet 1 mg PO QDAY 10/07/23 06/27/24 History insulin lispro 100 unit/mL See Rx Instructions .Route .COMPLEX 10/07/23 06/27/24 History subcutaneous solution (Humalog U-100 Insulin) vortioxetine 10 mg tablet 10 mg PO QDAY 10/07/23 06/27/24 History (Trintellix) alprazolam 0.25 mg tablet (Xanax) 0.25 mg PO BID PRN yelling out, 11/08/23 06/27/24 History anxiety famotidine 20 mg tablet (Pepcid) 20 mg PO BID 11/08/23 06/27/24 History pantoprazole 40 mg tablet,delayed 40 mg PO QDAY 11/08/23 06/27/24 History release (Protonix) tramadol 50 mg tablet 50 mg PO Q6H PRN Pain, Moderate 11/08/23 06/27/24 History methimazole 5 mg tablet 5 mg PO TID 01/01/24 06/27/24 History pregabalin 50 mg capsule 50 mg PO BID 01/01/24 06/27/24 History magnesium hydroxide 400 mg/5 mL 30 ml PO Q72H PRN Constipation 01/07/24 06/27/24 History oral suspension (Milk of Magnesia) fosfomycin tromethamine 3 gram 1 packet PO Q7D uti prophylaxis 06/27/24 06/27/24 History oral packet sodium phosphates 19 gram-7 118 ml CA Q72H PRN Constipation 06/27/24 06/27/24 History gram/118 mL enema (Fleet Enema) Allergies Allergy/AdvReac Type Severity Reaction Status Date / Time adhesive tape Allergy Rash Verified 11/15/23 11:10 diphenhydramine Allergy Hives Verified 06/27/24 23:53 [From Radu] Visit Medications Acetaminophen (Acetaminophen 325 Mg Tablet) 650 mg PO Q6H PRN PRN Reason: Fever >100.3 or pain Stop: 07/27/24 14:52 Dextrose (Dextrose 50%-Water Inj 50 Ml Syringe) 25 ml IV Q15MIN PRN PRN Reason: BG 50-70 responsive npo pt Stop: 07/27/24 16:19 Dextrose (Dextrose 50%-Water Inj 50 Ml Syringe) 50 ml IV Q15MIN PRN PRN Reason: BG <50 OR BG <70 & pt unresponsive Stop: 07/27/24 16:19 Glucagon (Glucagon Inj 1 Mg Vial) 1 mg IM Q15MIN PRN PRN Reason: BG <70, and no IV access Heparin Sodium (Porcine) (Heparin Sod Inj 5000 Unit/Ml Vial) 5,000 unit SC Q12HR KODI Stop: 07/11/24 20:59 Last Admin: 07/01/24 08:44 Dose: 5,000 unit Meropenem 500 mg/ Sodium (Chloride) 50 mls @ 100 mls/hr IV Q12HR KODI Stop: 07/04/24 12:00 Insulin Glargine (Insulin Glargine (Lantus) 5 Unit/0.05 Ml (Per 5 Units)) 10 unit SC HS KODI Stop: 07/27/24 20:59 Last Admin: 06/30/24 20:14 Dose: 10 unit Insulin Human Lispro (Insulin Lispro (Admelog) 1 Unit/0.01 Ml Unit) 0 unit SC AC KODI; Protocol Stop: 07/27/24 16:59 Last Admin: 07/01/24 11:56 Dose: 1 unit Ondansetron HCl (Ondansetron Inj 2 Mg/Ml Inj 2 Ml) 4 mg IV Q6H PRN; Protocol PRN Reason: NAUSEA OR VOMITING Stop: 07/27/24 14:52 Pregabalin (Pregabalin 50 Mg Capsule) 50 mg PO BID KODI Stop: 07/28/24 20:59 Last Admin: 07/01/24 08:44 Dose: 50 mg Vortioxetine (Vortioxetine 5 Mg Tablet (Non Formulary)) 10 mg PO QDAY KODI Stop: 07/28/24 10:29 Last Admin: 07/01/24 08:44 Dose: 10 mg Discontinued Medications Glycerin (Glycerin, Adult 1 Ea Supp) 1 each CA X1 ONE Stop: 06/30/24 12:28 Last Admin: 06/30/24 17:03 Dose: 1 each Sodium Chloride (Ns) 1,000 mls @ 999 mls/hr IV .Q1H1M ONE Stop: 06/27/24 12:03 Last Infusion: 06/27/24 11:57 Dose: Infused Sodium Chloride (Ns) 1,000 mls @ 999 mls/hr IV .Q1H1M ONE Stop: 06/27/24 13:37 Last Infusion: 06/27/24 17:25 Dose: Infused Ceftriaxone Sodium/Dextrose (Rocephin/D5w 1gm Iv Premix) 50 mls @ 100 mls/hr IV X1 ONE Stop: 06/27/24 13:46 Last Infusion: 06/27/24 16:00 Dose: Infused Meropenem 500 mg/ Sodium (Chloride) 50 mls @ 100 mls/hr IV Q12HR [facility]; Protocol Stop: 07/04/24 20:59 Last Admin: 06/28/24 09:30 Dose: Not Given Sodium Chloride (Ns) 1,000 mls @ 75 mls/hr IV .[id number] [facility] Stop: 06/28/24 04:31 Last Admin: 06/27/24 15:18 Dose: 75 mls/hr Sodium Chloride (Ns) 500 mls @ 999 mls/hr IV .Q31M KODI Stop: 06/27/24 16:04 Last Infusion: 06/27/24 16:30 Dose: Infused Meropenem 500 mg/ Sodium (Chloride) 50 mls @ 100 mls/hr IV Q12HR KODI; Protocol Stop: 07/04/24 20:59 Last Admin: 07/01/24 08:44 Dose: 100 mls/hr Meropenem 500 mg/ Sodium (Chloride) 50 mls @ 100 mls/hr IV Q12HR KODI Stop: 07/08/24 20:59 Ondansetron HCl (Ondansetron Odt 4 Mg Tabrap) 4 mg PO X1 ONE; Protocol Stop: 06/27/24 09:21 Last Admin: 06/27/24 10:03 Dose: 4 mg Polyethylene Glycol (Polyethylene Glycol 17 Gm Packet) 17 gm PO X1 ONE Stop: 06/30/24 12:28 Last Admin: 06/30/24 15:23 Dose: 17 gm Potassium Chloride (Potassium Chloride 20 Meq Tabcr) 40 meq PO X1 ONE Stop: 06/27/24 13:50 Last Admin: 06/27/24 15:13 Dose: 40 meq Potassium Chloride (Potassium Chloride 20 Meq Tabcr) 20 meq PO X1 ONE Stop: 06/27/24 13:50 Last Admin: 06/27/24 15:58 Dose: 20 meq Potassium Chloride (Potassium Chloride 20 Meq Tabcr) 40 meq PO X1 ONE Stop: 06/28/24 07:38 Last Admin: 06/28/24 09:35 Dose: 40 meq Assessment & Plan Plan Patient is a 69 year old female with history of insulin-dependent type 2 diabetes, A-fib no longer on Eliquis, hypothyroidism, HFpEF (60-65% October 2023), anxiety, GERD, recurrent UTI, bedbound, akinetic parkinsonism, and hyperlipidemia who presented to the ED from [facility] with concerns of fatigue, weakness, and episodes of vomiting for 3 days. Given history of ESBL Klebsiella UTI, patient was admitted for intractable nausea/vomiting with possible sepsis secondary to urinary tract infection. Today, patient is examined bedside and denies any complaints. She states she did not recall coming into the ED, states she was asleep, then woke up here in the hospital. Denies and dysuria or abdominal pain, states her UTIs in the past are also asymptomatic. Urine cultures reveal Klebsiella Oxytoca with MDR and ESBL. Infectious disease consulted for ESBL Klebsiella UTI. #MDR ESBL Klebsiella UTI - Appears to be asymptomatic however will treat as UTI - Patient was given fosfomycin in past, consider fosfomycin sensitivity to check for resistance - Macrobid not advised given creatinine clearance and kidney function - Advise 7 days total of carbapenem - IV Merem 500mg BID through 07/04 #JATIN #Intractable nausea/vomiting #T2DM #Atrial fibrillation #Parkinsonism #Anxiety #Depression #GERD #Hypertension - Management per primary team Patient case discussed with attending physician Dr. Rosa Maria Cotton, DO PGY-3
[2024-07-01] MEDS: INSULIN GLARGINE (Lantus) 5 UNIT/0.05 ML (PER 5 UNITS) 10 UNIT SC (20:18)
[2024-07-02] VITALS (7 sets, daily range): BP systolic 106–130; BP diastolic 61–76; PULSE 82–89; RESP 17–97; TEMP 36.1–36.7; O2SAT 95–99
[2024-07-02 05:48] LABS: Basophils # (Auto) 0.1 Thou/mm3 (0.0-0.2); Basophils % (Auto) 1 % (0-2.5); Eosinophils # (Auto) 0.5 Thou/mm3 (0.0-0.5); Eosinophils % (Auto) 4 % (0-10); Hematocrit 38.9 % (36.0-46.0); Hemoglobin 12.4 g/dL (12.0-16.0); Immature Granulocytes % (Auto) 1 % (0-0); Lymphocytes # (Auto) 4.3 Thou/mm3 (1.0-4.8); Lymphocytes % (Auto) 39 % (10-50); Mean Corpuscular HGB Conc 31.9 g/dl (31.0-37.0); Mean Corpuscular Hemoglobin 30.4 pg (25.0-35.0); Mean Corpuscular Volume 95 fL (80-100); Monocytes # (Auto) 1.3 Thou/mm3 (0.0-0.8); Monocytes % (Auto) 12 % (0-12); Neutrophils # (Auto) 4.7 Thou/mm3 (1.8-7.7); Neutrophils % (Auto) 44 % (37-80); Nucleated Red Blood Cell % 0 /100 WBC (0); Platelet Count 193 Thou/mm3 (140-440); Red Blood Count 4.08 Miln/mm3 (4.00-5.20); White Blood Count 10.9 Thou/mm3 (3.6-11.0)
[2024-07-02 06:31] LABS: Alanine Aminotransferase 17 U/L (10-49); Albumin, Serum 3.5 gm/dL (3.4-4.8); Albumin/Globulin Ratio 1.3 (1.2-2.2); Alkaline Phosphatase 106 U/L (46-116); Anion Gap 5 (7-16); Aspartate Amino Transferase 18 U/L (0-34); BUN/Creatinine Ratio 31 Ratio (12-20); Bilirubin,Total 0.3 mg/dL (0.3-1.2); Blood Urea Nitrogen 49 mg/dL (9-23); Calcium 9.4 mg/dL (8.3-10.6); Calcium (Corrected) 9.8 mg/dL (8.5-10.1); Carbon Dioxide 27.8 mMol/L (20.0-31.0); Chloride 101 mMol/L (98-107); Creatinine (Component) 1.6 mg/dL (0.6-1.3); Estimated Creatinine Clearance 34.8 mL/min (>60); Globulin 2.8 gm/dL (2.3-3.5); Glucose 107 mg/dL (74-106); Magnesium 1.9 mg/dL (1.6-2.6); Osmolality,Calculated 281 (275-295); Phosphorous 2.5 mg/dL (2.4-5.1); Sodium 134 mMol/L (136-145); Total Protein 6.3 gm/dL (5.7-8.2); eGFR 35 See Note
[2024-07-02] MEDS: MEROPENEM INJ 500 MG in SODIUM CHLORIDE 0.9% (P) 50 ML 100 MG IV ×2 (08:41→20:53)
[2024-07-02] MEDS: PREGABALIN 50 MG CAPSULE PO ×2 (08:41→20:56)
[2024-07-02] MEDS: HEPARIN SOD INJ 5000 UNIT/ML VIAL SC ×2 (08:48→20:53)
[2024-07-02] MEDS: VORTIOXETINE 5 MG TABLET (NON FORMULARY) 10 MG PO (08:54)
--- NOTE | 2024-07-02 15:42 | ESPR_ITS ---
<Statement entered by Chang Pereira MD - 07/02/24 16:53> Ms. Simms is a 69-year-old female admitted for sepsis secondary to ESBL Klebsiella UTI. Patient has been on IV meropenem since 06/27/2024. Infectious disease consulted, appreciate Dr. Crane's recommendations. Patient to continue on IV meropenem until 07/04/2024 to complete course. She will be discharged back to SNF on 07/04/2024 Patient examined and case discussed with the team including attending physician. Note reviewed, I agree with the care plan as documented. - Chang Pereira MD, PGY 2 Documentation for date of: 07/02/24 Subjective Subjective Interval history: No acute overnight events. Tolerating oral intake without nausea or vomiting. Sleeping well. Denies fever, chills, headaches, chest pain, sob, cough, GI or urinary symptoms. Exam Vital Signs Temp Pulse Resp BP Pulse Ox O2 Del Method O2 Flow Rate 97.1 F 83 17 108/71 99 Nasal Cannula 1.5 07/02/24 12:00 07/02/24 12:00 07/02/24 12:00 07/02/24 12:00 07/02/24 12:07/02/24 12:00 07/02/24 12:00 Narrative Exam GENERAL: Normal appearing adult female, NAD HEENT: NCAT.?TEDDY. Oral mucosa is moist. Patent Nares NECK: Supple, nontender, no thyromegaly, no meningismus, no JVD, no step offs CHEST: Symmetrical, atraumatic, and with equal expansion, Nontender on palpation no deformity and no crepitus. CARDIOVASCULAR: RRR, no m/g/r LUNGS: CTAB, no w/r/r. Symmetrical chest rise. No intercostal subcostal retraction. ABDOMEN: Soft, mildly distended, nontender. No guarding/rebound tenderness/masses. +BS EXTREMITIES: Nontender.? No edema/cyanosis.?Moves all 4 extremities well, with full ROM and good CSM. SKIN: Warm and dry, chronic senile purpura of bilateral upper extremities. MSK: No lumbar or midline, no CVA, no paraspinal muscle spasm or tenderness. NEURO: DALEY x4, CN II-XII grossly intact.?No focal neurologic deficits. PSYCHIATRIC: Normal mood and affect, cooperative, no SI or HI or hallucinations. Objective Labs 07/02/24 04:57 07/02/24 04:57 Labs: Laboratory Results - last 24 hr 07/02/24 04:57 WBC 10.9 RBC 4.08 Hgb 12.4 Hct 38.9 MCV 95 MCH 30.4 MCHC 31.9 RDW Std Deviation 43.0 Plt Count 193 Neut % (Auto) 44 Lymph % (Auto) 39 Gregory % (Auto) 12 Eos % (Auto) 4 Baso % (Auto) 1 Neut # (Auto) 4.7 Lymph # (Auto) 4.3 Gregory # (Auto) 1.3 H Eos # (Auto) 0.5 Baso # (Auto) 0.1 Immature Gran # (Auto) 0.10 H Absolute Nucleated RBC 0.00 Immature Gran % 1 H Nucleated RBC % 0 Sodium 134 L Potassium 5.0 D Chloride 101 Carbon Dioxide 27.8 Anion Gap 5 L BUN 49 H Creatinine 1.6 H Estim Creat Clear Calc 34.8 L eGFR 35 L BUN/Creatinine Ratio 31 H Glucose 107 H Calculated Osmolality 281 Calcium 9.4 Corrected Calcium 9.8 Phosphorus 2.5 Magnesium 1.9 Total Bilirubin 0.3 AST 18 ALT 17 Alkaline Phosphatase 106 Total Protein 6.3 Albumin 3.5 Globulin 2.8 Albumin/Globulin Ratio 1.3 Quality Measures Quality Measures VTE prophylaxis (Heparin subcutaneously) Advance care planning discussed with:: patient Assessment & Plan Assessment Current Active Medications: Generic Name Dose Route Start Last Admin Trade Name Freq PRN Reason Stop Dose Admin Acetaminophen 650 mg 06/27/24 14:53 Acetaminophen 325 Mg Tablet PO 07/27/24 14:52 Q6H PRN Fever >100.3 or pain Dextrose 25 ml 06/27/24 16:20 Dextrose 50%-Water Inj 50 Ml Syringe IV 07/27/24 16:19 Q15MIN PRN BG 50-70 responsive npo pt Dextrose 50 ml 06/27/24 16:20 Dextrose 50%-Water Inj 50 Ml Syringe IV 07/27/24 16:19 Q15MIN PRN BG <50 OR BG <70 & pt unresponsive Glucagon 1 mg 06/27/24 16:20 Glucagon Inj 1 Mg Vial IM Q15MIN PRN BG <70, and no IV access Heparin Sodium (Porcine) 5,000 unit 06/27/24 21:00 07/02/24 08:48 Heparin Sod Inj 5000 Unit/Ml Vial SC 07/11/24 20:59 5,000 unit Q12HR KODI Administration Meropenem 500 mg/ Sodium 50 mls @ 100 mls/hr 07/01/24 21:00 07/02/24 08:41 Chloride IV 07/04/24 12:00 100 mls/hr Q12HR KODI Administration Insulin Glargine 10 unit 06/27/24 21:00 07/01/24 20:18 Insulin Glargine (Lantus) 5 Unit/0.05 Ml (Per 5 Units) SC 07/27/24 20:59 10 unit HS KODI Administration Insulin Human Lispro 0 unit 06/27/24 17:00 07/02/24 11:56 Insulin Lispro (Admelog) 1 Unit/0.01 Ml Unit SC 07/27/24 16:59 Not Given AC KODI Protocol Ondansetron HCl 4 mg 06/27/24 14:53 Ondansetron Inj 2 Mg/Ml Inj 2 Ml IV 07/27/24 14:52 Q6H PRN NAUSEA OR VOMITING Protocol Pregabalin 50 mg 06/28/24 21:00 07/02/24 08:41 Pregabalin 50 Mg Capsule PO 07/28/24 20:59 50 mg BID KODI Administration Vortioxetine 10 mg 06/28/24 10:30 07/02/24 08:54 Vortioxetine 5 Mg Tablet (Non Formulary) PO 07/28/24 10:29 10 mg QDAY KODI Administration Plan In summary: 69-year-old female PMHx of IDDM, A-fib no longer on ELIQUIS, hypothyroidism, HFpEF, anxiety, GERD, recurrent UTI, bedbound, akinetic parkinsonism, HLD presented with fatigue and weakness, multiple episodes of vomiting, admitted for sepsis secondary to UTI, JATIN intractable nausea and vomiting. UTI grew ESBL Klebsiella, patient on MEROPENEM. ID consulted who recommended ERTAPENEM. Patient refused PICC line, will continue with IV ANTIBIOTICS. Overall symptoms continue to improve. Currently asymptomatic. # Sepsis ? resolved # ESBL Klebsiella UTI, symptomatic Sepsis on admission with leukocytosis and hypotension UA positive for UTI, culture grew ESBL Klebsiella which is also present on previous admission S/p 2.5 L bolus, continued on ANTIBIOTICS, leukocytosis resolved Overall symptoms improved ID was consulted who recommended continuing carbapenem PICC line placement pending, patient will discharge to SNF with IV ANTIBIOTICS ? Continue MEROPENEM TID ? Daily CBC # JATIN, prerenal versus renal In settings of UTI BUN/creatinine ratio greater than 20 indicating prerenal etiology Initial CR 2.8, imporved to 1.6 with current management ? Continue current management ? Daily CMP ? Avoid NEPHROTOXINS ? Renally dose meds # Intractable nausea/vomiting - resolved Possibly related to UTI, managed with ZOFRAN Tolerating oral intake without nausea, vomiting ? Continue ZOFRAN 4 mg daily # Insulin-dependent type 2 diabetes, adequately controlled December 2023 A1c 5.4, bedside GLUCOSE 125 ? Continue GLARGINE 10 units HS ? INSULIN sliding scale ? Accu-Cheks ? Holding home JANUVIA # History atrial fibrillation # Primary hypertension At home patient takes lisinopril 2.5 mg p.o. daily and metoprolol tartrate 25 mg p.o. 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 Currently RRR, EKG no acute changes, sinus rhythm. # History akinetic parkinsonism # History anxiety/depression ? Continue home TRINTELLIX 10 mg daily ? Continue home ALPRAZOLAM 0.25 mg BID PRN # GERD ? PANTOPRAZOLE 40 mg daily Health maintenance Diet: Carbohydrate consistent GI prophylaxis: PROTONIX DVT prophylaxis: HEPARIN subcu Antibiotics: MEROPENEM CODE STATUS: Full code Disposition: Pending completion of ANTIBIOTICS, will discharge to SNF Patient case was discussed with attending, Dr. Carly Azar DO and senior residents Dr. Crawford and Dr. Pereira. Kaur Le DO PGYI Attending Provider Attestation/Addendum I, Shana Azar DO, attest that I was physically present for the rushing portions of the service and evaluated the patient with the resident and I reviewed and discussed the case with the resident and agree with the resident's findings and plans of care as documented above Patient seen and evaluated this AM. No acute events overnight. Will continue with IV meropenem until 07/04 as patient refused to have PICC line placed.
[2024-07-02] MEDS: INSULIN LISPRO (AdmeLOG) 1 UNIT/0.01 ML UNIT SC (17:11)
[2024-07-02] MEDS: INSULIN GLARGINE (Lantus) 5 UNIT/0.05 ML (PER 5 UNITS) 10 UNIT SC (20:55)
[2024-07-02] MEDS: ONDANSETRON INJ 2 MG/ML INJ 2 ML 4 MG IV (23:45)
[2024-07-03] VITALS (9 sets, daily range): BP systolic 91–119; BP diastolic 56–73; PULSE 81–94; RESP 16–95; TEMP 36.1–36.3; O2SAT 95–97
--- NOTE | 2024-07-03 05:41 | PC.NURSE ---
Notified MD Christianson that pt threw up a total of 1,800 of brownish fluid with bits of undigested food. When I asked the patient, she informed me that this have occurred multiple times at [employer] where she would throw up a lot. Vitals are 98.7 temp, RR of 15, SPO2 of 98%, BP of 97/61 (Map 73) and HR 95. Tested positive for gastro occult blood. MD came to the bedside to assess patient. Stat H&H have been ordered and said to hold breakfast
[2024-07-03 06:03] LABS: Basophils # (Auto) 0.1 Thou/mm3 (0.0-0.2); Basophils % (Auto) 1 % (0-2.5); Eosinophils # (Auto) 0.4 Thou/mm3 (0.0-0.5); Eosinophils % (Auto) 4 % (0-10); Hematocrit 42.1 % (36.0-46.0); Hemoglobin 13.9 g/dL (12.0-16.0); Immature Granulocytes % (Auto) 1 % (0-0); Immature Granulocytes Auto 0.06 Thou/mm3 (0.00-0.00); Lymphocytes # (Auto) 3.6 Thou/mm3 (1.0-4.8); Lymphocytes % (Auto) 31 % (10-50); Mean Corpuscular Hemoglobin 30.8 pg (25.0-35.0); Mean Corpuscular Volume 93 fL (80-100); Monocytes % (Auto) 9 % (0-12); Neutrophils # (Auto) 6.5 Thou/mm3 (1.8-7.7); Neutrophils % (Auto) 56 % (37-80); Nucleated Red Blood Cell % 0 /100 WBC (0); Platelet Count 221 Thou/mm3 (140-440); RDW Standard Deviation 42.5 fL (36.4-46.3); Red Blood Count 4.51 Miln/mm3 (4.00-5.20); White Blood Count 11.6 Thou/mm3 (3.6-11.0)
[2024-07-03 06:54] LABS: Alanine Aminotransferase 20 U/L (10-49); Albumin/Globulin Ratio 1.3 (1.2-2.2); Alkaline Phosphatase 112 U/L (46-116); Anion Gap 8 (7-16); Aspartate Amino Transferase 22 U/L (0-34); BUN/Creatinine Ratio 33 Ratio (12-20); Bilirubin,Total 0.3 mg/dL (0.3-1.2); Blood Urea Nitrogen 50 mg/dL (9-23); Calcium 10.1 mg/dL (8.3-10.6); Calcium (Corrected) 10.1 mg/dL (8.5-10.1); Carbon Dioxide 32.5 mMol/L (20.0-31.0); Chloride 96 mMol/L (98-107); Creatinine (Component) 1.5 mg/dL (0.6-1.3); Estimated Creatinine Clearance 37.1 mL/min (>60); Glucose 136 mg/dL (74-106); Magnesium 1.9 mg/dL (1.6-2.6); Osmolality,Calculated 287 (275-295); Phosphorous 3.3 mg/dL (2.4-5.1); Potassium 4.7 mMol/L (3.4-5.1); Sodium 136 mMol/L (136-145); eGFR 38 See Note
[2024-07-03] MEDS: INSULIN LISPRO (AdmeLOG) 1 UNIT/0.01 ML UNIT SC ×3 (08:01→17:45)
[2024-07-03] MEDS: VORTIOXETINE 5 MG TABLET (NON FORMULARY) 10 MG PO (09:31)
[2024-07-03] MEDS: MEROPENEM INJ 500 MG in SODIUM CHLORIDE 0.9% (P) 50 ML 100 MG IV ×2 (09:31→20:15)
[2024-07-03] MEDS: PREGABALIN 50 MG CAPSULE PO ×2 (09:31→20:15)
--- NOTE | 2024-07-03 11:04 | PC.NURSE ---
chk'd with dr alexis: change bravo order, pt doesn't have a catheter, says do not insert catheter
--- NOTE | 2024-07-03 11:59 | PC.PT ---
PT eval received. Patient is a LTC resident in the local SNF and has been bed bound. Will cancel PT evaluation. Patient is at her PLOF.
--- NOTE | 2024-07-03 13:56 | ESPR_ITS ---
Subjective Subjective Interval history: due to finish rx after tomorrow am dose. may be released at that time if not sooner on ertapenem 1 gm iv daily thru 07/04 Exam Vital Signs Temp Pulse Resp BP Pulse Ox O2 Del Method O2 Flow Rate 97.2 F 83 20 91/59 L 96 Nasal Cannula 1 07/03/24 11:18 07/03/24 11:18 07/03/24 11:18 07/03/24 11:18 07/03/24 11:18 07/03/24 11:18 07/03/24 06:06 Narrative Exam limited eval today Objective - Internal Medicine Labs 07/03/24 05:47 07/03/24 05:47 Labs: Laboratory Results - last 24 hr 07/03/24 05:47 WBC 11.6 H RBC 4.51 Hgb 13.9 Hct 42.1 MCV 93 MCH 30.8 MCHC 33.0 RDW Std Deviation 42.5 Plt Count 221 Neut % (Auto) 56 Lymph % (Auto) 31 Braxton % (Auto) 9 Eos % (Auto) 4 Baso % (Auto) 1 Neut # (Auto) 6.5 Lymph # (Auto) 3.6 Braxton # (Auto) 1.0 H Eos # (Auto) 0.4 Baso # (Auto) 0.1 Immature Gran # (Auto) 0.06 H Absolute Nucleated RBC 0.00 Immature Gran % 1 H Nucleated RBC % 0 Sodium 136 Potassium 4.7 Chloride 96 L Carbon Dioxide 32.5 H Anion Gap 8 BUN 50 H Creatinine 1.5 H Estim Creat Clear Calc 37.1 L eGFR 38 L BUN/Creatinine Ratio 33 H Glucose 136 H Calculated Osmolality 287 Calcium 10.1 Corrected Calcium 10.1 Phosphorus 3.3 Magnesium 1.9 Total Bilirubin 0.3 AST 22 ALT 20 Alkaline Phosphatase 112 Total Protein 7.0 Albumin 4.0 D Globulin 3.0 Albumin/Globulin Ratio 1.3 Assessment & Plan A&P Narrative pneumonia. not striking but is on O2 but amount minimal with excellent sats bacteriuria with n/v on admit ckd as noted not needing hd a1c 5.7 was sl higher previously, she is convinced she has dm btw. favor carbapenem thru 07/04 () given start of merrem on 06/28 no labs needed. but with ckd and pneumonia and limited options. will stay with carbapenem had suggested daily ertapenem Monday, but at this point, just finish rx in am will see again prn Time Spent With Patient Time: Total time spent is greater than 50% in coordination of care (as documented) at patient's floor/unit and/or counseling patient:
--- NOTE | 2024-07-03 14:31 | ESPR_ITS ---
<Statement entered by Cookie Crawford MD - 07/03/24 19:22> Patient was seen and examined by me personally. I agree with most of the assessment and plan as discussed with the development intern physician, and my attending, Dr. Edward. Patient will complete merrem course on 07/04 and discharge back to SNF. Cookie Crawford MD, PGY-3 Documentation for date of: 07/03/24 Subjective Subjective Interval history: No acute overnight events. Continues tolerate oral intake without nausea or vomiting. Denies fever, chills, headaches, chest pain, sob, cough, GI or urinary symptoms. Exam Vital Signs Temp Pulse Resp BP Pulse Ox O2 Del Method O2 Flow Rate 97.2 F 83 20 91/59 L 96 Nasal Cannula 1 07/03/24 11:18 07/03/24 11:18 07/03/24 11:18 07/03/24 11:18 07/03/24 11:18 07/03/24 11:18 07/03/24 06:06 Narrative Exam GENERAL: Normal appearing adult female, NAD HEENT: NCAT.?TEDDY. Oral mucosa is moist. Patent Nares NECK: Supple, nontender, no thyromegaly, no meningismus, no JVD, no step offs CHEST: Symmetrical, atraumatic, and with equal expansion, Nontender on palpation no deformity and no crepitus. CARDIOVASCULAR: RRR, no m/g/r LUNGS: CTAB, no w/r/r. Symmetrical chest rise. No intercostal subcostal retraction. ABDOMEN: Soft, mildly distended, nontender. No guarding/rebound tenderness/masses. +BS EXTREMITIES: Nontender.? No edema/cyanosis.?Moves all 4 extremities well, with full ROM and good CSM. SKIN: Warm and dry, chronic senile purpura of bilateral upper extremities. MSK: No lumbar or midline, no CVA, no paraspinal muscle spasm or tenderness. NEURO: DALEY x4, CN II-XII grossly intact.?No focal neurologic deficits. PSYCHIATRIC: Normal mood and affect, cooperative, no SI or HI or hallucinations. Objective Labs 07/04/24 04:45 07/04/24 04:45 Labs: Laboratory Results - last 24 hr 07/03/24 05:47 WBC 11.6 H RBC 4.51 Hgb 13.9 Hct 42.1 MCV 93 MCH 30.8 MCHC 33.0 RDW Std Deviation 42.5 Plt Count 221 Neut % (Auto) 56 Lymph % (Auto) 31 Andrews % (Auto) 9 Eos % (Auto) 4 Baso % (Auto) 1 Neut # (Auto) 6.5 Lymph # (Auto) 3.6 Andrews # (Auto) 1.0 H Eos # (Auto) 0.4 Baso # (Auto) 0.1 Immature Gran # (Auto) 0.06 H Absolute Nucleated RBC 0.00 Immature Gran % 1 H Nucleated RBC % 0 Sodium 136 Potassium 4.7 Chloride 96 L Carbon Dioxide 32.5 H Anion Gap 8 BUN 50 H Creatinine 1.5 H Estim Creat Clear Calc 37.1 L eGFR 38 L BUN/Creatinine Ratio 33 H Glucose 136 H Calculated Osmolality 287 Calcium 10.1 Corrected Calcium 10.1 Phosphorus 3.3 Magnesium 1.9 Total Bilirubin 0.3 AST 22 ALT 20 Alkaline Phosphatase 112 Total Protein 7.0 Albumin 4.0 D Globulin 3.0 Albumin/Globulin Ratio 1.3 Quality Measures Quality Measures VTE prophylaxis (Heparin subcutaneously) Advance care planning discussed with:: patient Assessment & Plan Assessment Current Active Medications: Generic Name Dose Route Start Last Admin Trade Name Freq PRN Reason Stop Dose Admin Acetaminophen 650 mg 06/27/24 14:53 Acetaminophen 325 Mg Tablet PO 07/27/24 14:52 Q6H PRN Fever >100.3 or pain Dextrose 25 ml 06/27/24 16:20 Dextrose 50%-Water Inj 50 Ml Syringe IV 07/27/24 16:19 Q15MIN PRN BG 50-70 responsive npo pt Dextrose 50 ml 06/27/24 16:20 Dextrose 50%-Water Inj 50 Ml Syringe IV 07/27/24 16:19 Q15MIN PRN BG <50 OR BG <70 & pt unresponsive Glucagon 1 mg 06/27/24 16:20 Glucagon Inj 1 Mg Vial IM Q15MIN PRN BG <70, and no IV access Heparin Sodium (Porcine) 5,000 unit 06/27/24 21:00 07/02/24 20:53 Heparin Sod Inj 5000 Unit/Ml Vial SC 07/11/24 20:59 5,000 unit Q12HR KODI Administration Meropenem 500 mg/ Sodium 50 mls @ 100 mls/hr 07/01/24 21:00 07/03/24 09:31 Chloride IV 07/04/24 12:00 100 mls/hr Q12HR KODI Administration Insulin Glargine 10 unit 06/27/24 21:00 07/02/24 20:55 Insulin Glargine (Lantus) 5 Unit/0.05 Ml (Per 5 Units) SC 07/27/24 20:59 10 unit HS KODI Administration Insulin Human Lispro 0 unit 06/27/24 17:00 07/03/24 11:42 Insulin Lispro (Admelog) 1 Unit/0.01 Ml Unit SC 07/27/24 16:59 1 unit AC KODI Administration Protocol Ondansetron HCl 4 mg 06/27/24 14:53 07/02/24 23:45 Ondansetron Inj 2 Mg/Ml Inj 2 Ml IV 07/27/24 14:52 4 mg Q6H PRN Administration NAUSEA OR VOMITING Protocol Pregabalin 50 mg 06/28/24 21:00 07/03/24 09:31 Pregabalin 50 Mg Capsule PO 07/28/24 20:59 50 mg BID KODI Administration Vortioxetine 10 mg 06/28/24 10:30 07/03/24 09:31 Vortioxetine 5 Mg Tablet (Non Formulary) PO 07/28/24 10:29 10 mg QDAY KODI Administration Plan In summary: 69-year-old female PMHx of IDDM, A-fib no longer on ELIQUIS, hypothyroidism, HFpEF, anxiety, GERD, recurrent UTI, bedbound, akinetic parkinsonism, HLD presented with fatigue and weakness, multiple episodes of vomiting, admitted for sepsis secondary to UTI, JATIN intractable nausea and vomiting. UTI grew ESBL Klebsiella, patient on MEROPENEM. ID consulted who recommended ERTAPENEM. Patient refused PICC line, will continue with IV ANTIBIOTICS. Overall symptoms continue to improve. Continues to be asymptomatic. # Sepsis ? resolved # ESBL Klebsiella UTI, symptomatic Sepsis on admission with leukocytosis and hypotension UA positive for UTI, culture grew ESBL Klebsiella which is also present on previous admission S/p 2.5 L bolus, continued on ANTIBIOTICS, leukocytosis resolved Overall symptoms improved ID was consulted who recommended continuing carbapenem PICC line placement pending, patient will discharge to SNF with IV ANTIBIOTICS ? Continue MEROPENEM TID ? Daily CBC # JATIN, prerenal versus renal In settings of UTI BUN/creatinine ratio greater than 20 indicating prerenal etiology Initial CR 2.8, overall improving with current manage current, creatinine 1.5 today ? Continue current management ? Daily CMP ? Avoid NEPHROTOXINS ? Renally dose meds # Intractable nausea/vomiting - resolved Possibly related to UTI, managed with ZOFRAN Tolerating oral intake without nausea, vomiting ? Continue ZOFRAN 4 mg daily # Insulin-dependent type 2 diabetes, adequately controlled December 2023 A1c 5.4, bedside GLUCOSE 154 ? Continue GLARGINE 10 units HS ? INSULIN sliding scale ? Accu-Cheks ? Holding home JANUVIA # History atrial fibrillation # Primary hypertension At home patient takes lisinopril 2.5 mg p.o. daily and metoprolol tartrate 25 mg p.o. 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 Currently RRR, EKG no acute changes, sinus rhythm. # History akinetic parkinsonism # History anxiety/depression ? Continue home TRINTELLIX 10 mg daily ? Continue home ALPRAZOLAM 0.25 mg BID PRN # GERD ? PANTOPRAZOLE 40 mg daily Health maintenance Diet: Carbohydrate consistent GI prophylaxis: PROTONIX DVT prophylaxis: HEPARIN subcu Antibiotics: MEROPENEM CODE STATUS: Full code Disposition: Pending completion of ANTIBIOTICS, will discharge to SNF Patient case was discussed with attending, Dr. Cheyanne PICHARDO and senior residents Dr. Crawford and Dr. Pereira. Kaur Le DO PGYI Attending Provider Attestation/Addendum I reviewed labs, imaging, EKG, home medications and prior available records. Face to face evaluation was performed by me. I have personally examined the patient and discussed assessment and plan with the IM team. I reviewed the resident note and agree with the plan with exceptions as below. ESBL Klebsiella UTI: She is on IV meropenem. Refused PICC line. Continue till 07/04. May discharge after.
[2024-07-03] MEDS: INSULIN GLARGINE (Lantus) 5 UNIT/0.05 ML (PER 5 UNITS) 10 UNIT SC (20:15)
[2024-07-04] VITALS: BP 90/58; PULSE 83; RESP 16; TEMP 36; O2SAT 94
[2024-07-04 04:00] VITALS: BP 93/59; PULSE 88; RESP 18; TEMP 36; O2SAT 94
[2024-07-04 06:08] LABS: Basophils # (Auto) 0.1 Thou/mm3 (0.0-0.2); Basophils % (Auto) 1 % (0-2.5); Eosinophils # (Auto) 0.4 Thou/mm3 (0.0-0.5); Eosinophils % (Auto) 4 % (0-10); Hematocrit 38.8 % (36.0-46.0); Hemoglobin 12.7 g/dL (12.0-16.0); Immature Granulocytes % (Auto) 1 % (0-0); Immature Granulocytes Auto 0.07 Thou/mm3 (0.00-0.00); Lymphocytes % (Auto) 39 % (10-50); Mean Corpuscular HGB Conc 32.7 g/dl (31.0-37.0); Mean Corpuscular Hemoglobin 30.6 pg (25.0-35.0); Mean Corpuscular Volume 94 fL (80-100); Monocytes # (Auto) 1.2 Thou/mm3 (0.0-0.8); Monocytes % (Auto) 12 % (0-12); Neutrophils # (Auto) 4.5 Thou/mm3 (1.8-7.7); Neutrophils % (Auto) 44 % (37-80); Nucleated Red Blood Cell % 0 /100 WBC (0); Platelet Count 218 Thou/mm3 (140-440); RDW Standard Deviation 43.8 fL (36.4-46.3); Red Blood Count 4.15 Miln/mm3 (4.00-5.20); White Blood Count 10.2 Thou/mm3 (3.6-11.0)
[2024-07-04 06:48] LABS: Alanine Aminotransferase 20 U/L (10-49); Albumin, Serum 3.7 gm/dL (3.4-4.8); Albumin/Globulin Ratio 1.3 (1.2-2.2); Alkaline Phosphatase 100 U/L (46-116); Anion Gap 6 (7-16); Aspartate Amino Transferase 15 U/L (0-34); BUN/Creatinine Ratio 37 Ratio (12-20); Bilirubin,Total 0.3 mg/dL (0.3-1.2); Blood Urea Nitrogen 66 mg/dL (9-23); Calcium 9.6 mg/dL (8.3-10.6); Calcium (Corrected) 9.8 mg/dL (8.5-10.1); Carbon Dioxide 35.3 mMol/L (20.0-31.0); Chloride 95 mMol/L (98-107); Creatinine (Component) 1.8 mg/dL (0.6-1.3); Estimated Creatinine Clearance 30.9 mL/min (>60); Globulin 2.9 gm/dL (2.3-3.5); Glucose 103 mg/dL (74-106); Magnesium 2.1 mg/dL (1.6-2.6); Osmolality,Calculated 290 (275-295); Potassium 4.4 mMol/L (3.4-5.1); Sodium 136 mMol/L (136-145); Total Protein 6.6 gm/dL (5.7-8.2); eGFR 30 See Note
[2024-07-04 07:12] VITALS: BP 110/73; PULSE 86; RESP 20; TEMP 36.1; O2SAT 94
[2024-07-04 07:14] VITALS: PULSE 87; RESP 18; O2SAT 95
[2024-07-04] MEDS: MEROPENEM INJ 500 MG in SODIUM CHLORIDE 0.9% (P) 50 ML 100 MG IV (08:18)
[2024-07-04] MEDS: VORTIOXETINE 5 MG TABLET (NON FORMULARY) 10 MG PO (08:18)
--- NOTE | 2024-07-04 10:07 | PC.SS ---
Follow up note: SS left daughter in law a message re: d/c orders. Patient to finish last dose of i.v. medication by noon. Transport to be set up after noon to [facility]. SS updated facility.
[2024-07-04] MEDS: Milk Of Magnesia Susp 30 ML UDC PO (10:27)
--- NOTE | 2024-07-04 10:47 | ESDS_ITS ---
<Statement entered by Chang Pereira MD - 07/04/24 15:52> Patient was examined with the team including attending physician. Note reviewed, I agree with the discharge plan as documented. - Chang Pereira MD, PGY 2 Planned Discharge Date 07/04/24 DS: Providers Provider Date of admission: 06/27/24 14:43 Primary care physician: Jamarcus Botello MD Admitting Provider: Paulo Adkins DO Attending Provider on Admission: Victor Hugo Edward MD Consults: 06/28/24 08:00 Referral Registered Dietitian Routine Comment: Referral Wound Care Routine Comment: 06/30/24 11:55 Consult to Infectious Diseases Routine Comment: Consulting Provider: Sylvester Crane Attending Provider on DC: Victor Hugo Edward MD Discharging Provider: Victor Hugo Edward MD DS: Diagnosis Problem List Completed Was Problem List Reviewed/Reconciled?: Yes Hospital Course Hospital Course Hospital course: This is a 69-year-old female PMHx of IDDM, A-fib no longer on ELIQUIS, h ypothyroidism, HFpEF, anxiety, GERD, recurrent UTI, bedbound, akinetic parkinsonism, HLD presented with fatigue and weakness, multiple episodes of vomiting, admitted for sepsis secondary to UTI, JATIN intractable nausea and vomiting. UTI grew ESBL Klebsiella, patient treated with MEROPENEM. Overall symptoms improved. Patient was asymptomatic at the time of discharge back to baseline. PATIENT INSTRUCTIONS: ? Follow-up with PCP within 1 week of discharge ? Continue taking medications as prescribed. ? Return to emergency room if symptoms persist, worsen or new symptoms develop ADMISSION DIAGNOSES: # Sepsis ? resolved # ESBL Klebsiella UTI, symptomatic # JATIN, prerenal versus renal # Intractable nausea/vomiting - resolved # Insulin-dependent type 2 diabetes, adequately controlled # History atrial fibrillation # Primary hypertension # History akinetic parkinsonism # History anxiety/depression # GERD Patient case was discussed with attending, Victor Hugo Edward MD and senior residents Dr. Crawford and Dr. Pereira. Kaur Le DO PGYI Time Spent with Patient Time attestation: Total time spent providing and/or coordinating discharge services: 35 minutes. Exam Vital Signs Temp Pulse Resp BP Pulse Ox O2 Del Method O2 Flow Rate 97.0 F 87 18 110/73 95 Nasal Cannula 1 07/04/24 07:12 07/04/24 07:14 07/04/24 07:14 07/04/24 07:12 07/04/24 07:14 07/04/24 07:12 07/04/24 00:00 Narrative Exam GENERAL: Normal appearing adult female, NAD HEENT: NCAT.?TEDDY. Oral mucosa is moist. Patent Nares NECK: Supple, nontender, no thyromegaly, no meningismus, no JVD, no step offs CHEST: Symmetrical, atraumatic, and with equal expansion, Nontender on palpation no deformity and no crepitus. CARDIOVASCULAR: RRR, no m/g/r LUNGS: CTAB, no w/r/r. Symmetrical chest rise. No intercostal subcostal retraction. ABDOMEN: Soft, mildly distended, nontender. No guarding/rebound tenderness/masses. +BS EXTREMITIES: Nontender.? No edema/cyanosis.?Moves all 4 extremities well, with full ROM and good CSM. SKIN: Warm and dry, chronic senile purpura of bilateral upper extremities. MSK: No lumbar or midline, no CVA, no paraspinal muscle spasm or tenderness. NEURO: DALEY x4, CN II-XII grossly intact.?No focal neurologic deficits. PSYCHIATRIC: Normal mood and affect, cooperative, no SI or HI or hallucinations. Discharge Plan Plan Patient Disposition: Xfer [facility]illed [facility] Fac (SNF) Patient condition on transfer: Stable Care Plan Goals: ? Follow-up with PCP within 1 week of discharge ? Continue taking medications as prescribed. ? Return to emergency room if symptoms persist, worsen or new symptoms develop Prescriptions/Referrals Prescriptions/Med Rec: Continued metoprolol tartrate 25 mg tablet 12.5 mg PO BID Patient Comments: TAKE 1 TABLET BY MOUTH TWICE A DAY WITH FOOD FOR 30 DAYS Rx Instructions: hold SBP<100, DBP<60 or HR <60 acetaminophen [Tylenol] 325 mg Tablet 650 mg PO Q4HR PRN (Reason: Pain (Scale Score 1-3)) Rx Instructions: NOT TO EXCEED 3GM IN 24HRS ondansetron HCl 4 mg Tablet 4 mg PO TID PRN (Reason: Nausea) meclizine 25 mg Tablet 25 mg PO BID PRN (Reason: Nausea And Vomiting) Hold Instructions: Resume on 09/21/23. Rx Instructions: NEEDED FOR N/V AND DIZZINESS Januvia 100 mg tablet 100 mg PO QDAY Patient Comments: TAKE 1 TABLET BY MOUTH EVERY DAY FOR 30 DAYS insulin glargine [Lantus Solostar U-100 Insulin] 100 unit/mL (3 mL) Insulin Pen 40 unit SUBCUT HS Hold Instructions: Resume on 11/17/23. Patient's blood sugars have been stable without any long acting insulin. Please continue to monitor sugars and resume lantus at a lower dose, if she needs it. tramadol 50 mg Tablet 50 mg PO Q6H PRN (Reason: Pain, Moderate) alprazolam [Xanax] 0.25 mg Tablet 0.25 mg PO BID PRN (Reason: yelling out, anxiety) famotidine [Pepcid] 20 mg Tablet 20 mg PO BID pantoprazole [Protonix] 40 mg Tablet,Delayed Release (Dr/Ec) 40 mg PO QDAY pregabalin 50 mg Capsule 50 mg PO BID methimazole 5 mg tablet 5 mg PO TID Fleet Enema 19-7 gram/118 mL Enema 118 ml MD Q72H PRN (Reason: Constipation) folic acid 1 mg Tablet 1 mg PO QDAY insulin lispro [Humalog U-100 Insulin] 100 unit/mL Solution See Rx Instructions .ROUTE .COMPLEX Protocol: Insulin Corrective High-Dose Regimen Condition: Fingerstick Blood Glucose Dose/Route: Insulin Units Condition: 141-180 mg/dl Dose/Route: 6 units/SQ Condition: 181-220 mg/dl Dose/Route: 8 units/SQ Condition: 221-260 mg/dl Dose/Route: 10 units/SQ Condition: 261-300 mg/dl Dose/Route: 12 units/SQ Condition: 301-350 mg/dl Dose/Route: 14 units/SQ Condition: 351-400 mg/dl Dose/Route: 16 units/SQ Condition: greater than 400 mg/dl Dose/Route: 18 units/SQ Rx Instructions: sliding scale Trintellix 10 mg Tablet 10 mg PO QDAY docusate sodium [DSS] 250 mg Capsule 250 mg PO BID magnesium hydroxide [Milk of Magnesia] 400 mg/5 mL Suspension 30 ml PO Q72H PRN (Reason: Constipation) Rx Instructions: IF NO BM FOR 3 DAYS Discontinued Eliquis 5 mg tablet 5 mg PO BID Patient Comments: TAKE 1 TABLET BY MOUTH TWICE A DAY FOR ATRIAL FIBRILLATION fosfomycin tromethamine 3 gram packet 1 packet PO Q7D Rx Instructions: Start fosfomycin 3 g packet once every 3 days indefinitely for UTI prophylaxis starting from 01/08/2024 Referrals: Jamarcus Botello MD [Primary Care Provider] - Patient/Caregiver Discharge Instructions Discharge Activity: resume usual activities Education Materials: Journaling for Mental Health, Using a Blood Sugar Log, Urinary Tract Infections in Women Print Language: Serbian Stand Alone Forms: Claudia Award Info., Patient Portal Info Letter Discharge Order Discharge Orders: Discharge (Routine); Ordered 07/04/24 Ordered By: Chang Pereira Quality Discharge Quality Measures VTE prophylaxis Attestestation MD Attestation I reviewed labs, imaging, EKG, home medications and prior available records. Face to face evaluation was performed by me. I have personally examined the patient and discussed assessment and plan with the IM team. I reviewed the resident note and agree with the plan with exceptions as below. ESBL Klebsiella UTI: She is on IV meropenem. Refused PICC line. Continu finished on 07/04. Cleared for discharge after. Time spent is 35 minutes. More than 50% of the time was spent on patient education and coordination of care.
[2024-07-04] MEDS: INSULIN LISPRO (AdmeLOG) 1 UNIT/0.01 ML UNIT SC (11:22)
[2024-07-04 11:38] VITALS: BP 104/64; PULSE 85; RESP 18; TEMP 36; O2SAT 93
[2024-07-04] MEDS: GLYCERIN, ADULT 1 EA SUPP 1 EACH PR (12:30)
--- NOTE | 2024-07-04 12:51 | PC.NURSE ---
pt c/o anus pain, offered suppository after mom, went to give suppository and pt had had a bm
== END 2024-07-04 13:18 | disposition skilled nursing facility (03) | DRG 871 ==
LOC: SERX 13:22 → SERHOLD 15:07 → S3NX 22:58
PROVIDERS: Internal Medicine Infectious Disease; Admitting Provider Student in an Organized Health Care Education/Training Program; Emergency Provider Emergency Medicine; PCP Hospitalist; Visit Provider Student in an Organized Health Care Education/Training Program
DX: A41.9 Sepsis, unspecified organism (principal); J18.9 Pneumonia, unspecified organism; E87.3 Alkalosis; N17.9 Acute kidney failure, unspecified; N39.0 Urinary tract infection, site not specified; Z16.24 Resistance to multiple antibiotics; I13.0 Hypertensive heart and chronic kidney disease with heart failure and stage 1 through stage 4 chronic kidney disease, or unspecified chronic kidney disease; I50.32 Chronic diastolic (congestive) heart failure; Z16.12 Extended spectrum beta lactamase (ESBL) resistance; E03.9 Hypothyroidism, unspecified; E87.6 Hypokalemia; G20.C Parkinsonism, unspecified; K21.9 Gastro-esophageal reflux disease without esophagitis; K52.9 Noninfective gastroenteritis and colitis, unspecified; Z79.4 Long term (current) use of insulin; F32.A Depression, unspecified; F41.9 Anxiety disorder, unspecified; E11.22 Type 2 diabetes mellitus with diabetic chronic kidney disease; I48.91 Unspecified atrial fibrillation; N18.9 Chronic kidney disease, unspecified; B96.1 Klebsiella pneumoniae [K. pneumoniae] as the cause of diseases classified elsewhere; Z74.01 Bed confinement status
CPT/HCPCS: 36415; 71045; 80053; 81001; 82340; 82436; 82570; 83036; 83605; 83690; 83735; 83880; 84100; 84133; 84300; 84484; 85014; 85018; 85025; 85610; 86803; 87040; 87077; 87081; 87086; 87186; 87811; 93005; 96361; 96365; 96372; 99285; J0696; J1643; J1815; J2185; J2405; J7030; J7040; J7050; Q0162; A9270; J1644